=== PATIENT | male | born 1960 | race Caucasian/White ===

== ENCOUNTER 2017-07-30 15:37 | Inpatient (IN) | payer BC ==
[2017-07-30 15:37] VITALS: BMI 29.7
[2017-07-30 18:07] LABS: BASO # 0.1 K/uL (0.0-0.2); BASO % 1.2 % (0.0-2.0); EOS # 0.2 K/uL (0.0-0.7); EOS % 2.9 % (0.0-4.0); LYMPH % 24.3 % (20.0-40.0); MEAN CORPUSCULAR HEMOGLOBIN 27.8 pg (27.0-31.0); MEAN CORPUSCULAR HGB CONC 33.9 g/dL (33.0-37.0); MEAN PLATELET VOLUME 7.9 fL (7.2-11.7); MONO # 0.4 K/uL (0.0-0.8); MONO % 5.1 % (0.0-10.0); NEUT # 5.5 K/uL (1.8-7.0); NEUT % 66.5 % (50.0-75.0); NRBC % 0.1 % (0.0-2.0); RBC 5.52 Mil/uL (4.40-5.90); RED CELL DISTRIBUTION WIDTH 14.5 % (11.5-14.5); WHITE BLOOD COUNT 8.3 K/uL (4.8-10.8)
[2017-07-30 18:14] LABS: HEMOGLOBIN 15.3 g/dL (12.0-18.0); MEAN CELL VOLUME 81.9 fL (80.0-94.0)
--- NOTE | 2017-07-30 18:19 | CT ---
EXAM: CT Head Without Intravenous Contrast EXAM DATE/TIME: Exam ordered 07/30/2017 5:02 PM CLINICAL HISTORY: 56 years old, male; Signs and symptoms; Weakness, extremity; Left; Prior surgery; Surgery date: 6+ months; Surgery type: Aneursym; Additional info: Unsteady gait. Lle weakness? , H/o aneurysm surg. TECHNIQUE: Axial computed tomography images of the head/brain without intravenous contrast. All CT scans at this facility use one or more dose reduction techniques, viz.: automated exposure control; ma/kV adjustment per patient size (including targeted exams where dose is matched to indication; i.e. head); or iterative reconstruction technique. Coronal and sagittal reformatted images were created and reviewed. COMPARISON: No relevant prior studies available. FINDINGS: Brain: Encephalomalacia is noted bifrontally. Cystic encephalomalacia is noted in the left frontal lobe adjacent to the falx. There are multiple lacunar infarcts. A 4.6 mm lacunar infarct is seen in the right lentiform nucleus. A 9 mm somewhat linear area of low density is noted in the right thalamus. A 5 mm lacunar infarct is noted in the genu of the left internal capsule. A 7 mm area of low density is noted in the left lentiform nucleus suggesting lacunar infarct. A 4 mm low density focus is noted in the left thalamus. A 6 mm lacunar infarct is seen in the left sanchez radiata posteriorly. An 8 mm area of low density is noted in the right side of the leti. Inferior to this a second area of low density is noted in the leti measuring 5 mm. Low density is noted within the periventricular white matter extending into the sanchez radiata and centrum semiovale bilaterally. No hemorrhage. Ventricles: Unremarkable. No ventriculomegaly. Bones/joints: There is opacification of the left mastoid air cells. There is a fracture of the right nasal bone. There has been a right frontotemporal craniotomy. Soft tissues: Unremarkable. Vasculature: An aneurysm clip is noted at the level of right cavernous carotid. Beam hardening artifact is associated with the clip. Sinuses: Mucosal thickening is noted in left ethmoid air cells. Mastoid air cells: Unremarkable as visualized. No mastoid effusion. IMPRESSION: 1. No acute findings. Acute ischemia may not manifest on CT scan. MR with diffusion weighted imaging should be considered if there strong clinical concern for evolving infarct. 2. Bifrontal encephalomalacia with evidence of previous right frontotemporal craniotomy. 3. Multiple lacunar infarcts as described within the basal ganglia, the internal capsules and the leti. The age is uncertain. Comparison with old films would be helpful. 4. Chronic microvascular ischemic change in the deep white matter 5. Left ethmoid chronic sinusitis and left mastoiditis. The left mastoid is underpneumatized suggesting that this could be a chronic finding
[2017-07-30 18:26] LABS: PROTHROMBIN TIME 11.1 SECONDS (9.7-12.2)
[2017-07-30 18:28] LABS: ALB/GLOB RATIO 1.2 (1.0-2.1); ALBUMIN 3.8 g/dL (3.5-5.0); ALT/SGPT 31 U/L (21-72); AST/SGOT 25 U/L (17-59); BLOOD UREA NITROGEN 18 mg/dL (9-20); CALCIUM 9.2 mg/dl (8.6-10.4); GFR AFRICAN-AMERICAN > 60; GFR NON-AFRICAN AMERICAN 57; MAGNESIUM 1.3 mg/dL (1.6-2.3)
[2017-07-30 18:42] LABS: URINE BILIRUBIN NEGATIVE (NEGATIVE); URINE BLOOD SMALL (NEGATIVE); URINE CLARITY CLEAR (Clear); URINE COLOR YELLOW (YELLOW); URINE GLUCOSE (UA) 100 mg/dL (Normal); URINE HYALINE CAST 0-2 /lpf (0-2)
[2017-07-30 18:43] LABS: URINE LEUKOCYTE ESTERASE NEGATIVE Leu/uL (Negative); URINE NITRATE NEGATIVE (NEGATIVE); URINE PROTEIN > 300 mg/dL (NEGATIVE); URINE UROBILINOGEN 0.2 mg/dL (0.2-1.0)
[2017-07-30 18:49] LABS: BARBITURATES, UR NEGATIVE (NEGATIVE); BENZODIAZEPINES, UR NEGATIVE (NEGATIVE); OPIATES, UR NEGATIVE (NEGATIVE); PHENCYCLIDINE, UR NEGATIVE (NEGATIVE)
[2017-07-30] MEDS ORDERED: Magnesium Sulfate 1 gm in D5W 1 GM/100 ML BAG IVPB STA (19:01)
[2017-07-30] MEDS ORDERED: Magnesium Sulfate 1 gm in D5W 1 GM/100 ML BAG IVPB ONE (19:13)
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
--- NOTE | 2017-07-31 05:17 | HP ---
HISTORY OF PRESENT ILLNESS: This is a 56-year-old [place] male with history of multiple medical problems presented with symptoms of unsteadiness and urinary incontinence that has been intermittent during the last 10 days prior to this admission. Symptoms have been progressive and associated with also symptoms of occasional confusion. History was given by the patient's . There is no history of recent trauma. No history of seizure. The patient was evaluated in emergency room, and he had a CAT scan of the head that showed multiple lacunar infarct within the basal ganglia, the internal capsule and the leti, the age is uncertain with chronic microvascular ischemic changes in the deep white matter. The patient also has bifrontal encephalomalacia with evidence of previous right frontotemporal craniotomy. The patient had neurology consultation ordered by ER physician, and he was admitted for further management. Other review of system is negative. ALLERGIES: NO KNOWN ALLERGIES. MEDICATIONS: As per MAR. PAST MEDICAL HISTORY: Hypertension, type 2 diabetes mellitus, hypercholesterolemia. SOCIAL HISTORY: Smoker and history of heroin abuse. FAMILY HISTORY: Not contributory. PHYSICAL EXAMINATION: GENERAL: The patient is not in any cardiopulmonary distress with blood pressure 173/88, temperature 98.0, respiratory rate 18, and pulse 73. HEENT: Pupils equal and reactive to light. Normal-appearing mucosa of the conjunctivae, oropharynx and nasal membrane mucosa. NECK: Supple. No JVD. No carotid bruit. No lymph node. No thyromegaly. CHEST AND LUNGS: Bilateral symmetrical expansion. Good air exchange. No rales, no rhonchi. CARDIOVASCULAR SYSTEM: PMI not localized. S1 and S2. No additional sounds. ABDOMEN: Normoactive bowel sounds. No tenderness. No organomegaly. No masses. EXTREMITIES: No cyanosis, no clubbing, no edema. TIME CYCLE OPERATOR: Alert, awake, and oriented x2; and the patient has unsteadiness and positive Romberg sign, but there is no lateralization. ASSESSMENT: 1. Progressive intermittent unsteadiness with ataxia and tendency to fall and urinary incontinence with CAT scan finding of multiple infarctions. 2. Type 2 diabetes mellitus. 3. Hypercholesterolemia. 4. Smoker. PLAN: Neuro check every 4 hours. Neurology consult and follow recommendations. Carotid Doppler, echocardiogram. Resume patient's home medications. Accu-Cheks with insulin coverage. Fall precaution. Physical therapy. Discussed the patient's condition with his . [facility] MD [facility] # [id number]
[2017-07-31 08:21] LABS: HDL CHOLESTEROL 29 mg/dL (30-70)
[2017-07-31 08:32] LABS: LDL CHOLESTEROL 59 mg/dL (0-129)
[2017-07-31] MEDS: (Novolog) Insulin Aspart, Recombinant 100 u/ml 10 ml vial SC SCH ×4 (08:37→23:13)
--- NOTE | 2017-07-31 08:55 | RAD ---
Chest x-ray two views History: Cough. Comparison: 11/15/2014 Findings: Diffuse increased interstitial markings most prominently seen throughout the left lung with some patchy increased markings at the left lung base. Heart size within normal limits. Degenerative changes in the spine and shoulders. Impression: Diffuse increased interstitial markings most prominently seen throughout the left lung with some patchy increased markings at the left lung base.
[2017-07-31] MEDS: (Lantus) Insulin Glargine, Recombinant SC SCH (09:56)
[2017-07-31 12:26] LABS: BLOOD UREA NITROGEN 20 mg/dL (9-20); CALCIUM 9.2 mg/dl (8.6-10.4); GFR AFRICAN-AMERICAN > 60; GFR NON-AFRICAN AMERICAN 57; MAGNESIUM 1.6 mg/dL (1.6-2.3)
--- NOTE | 2017-07-31 15:45 | VASCLAB ---
PROCEDURE: HISTORY: Carotid artery stenosis COMPARISON: None available. TECHNIQUE: Grayscale and duplex Doppler evaluation of the cervical carotid and vertebral arteries were performed. The common carotid, carotid bifurcations and cervical Internal Carotid Artery (ICA) and proximal External Carotid Artery (ECA) were evaluated. The vertebral arteries were evaluated for gross patency and flow direction. Report prepared by Maykel Fleming, BS, RVT FINDINGS: RIGHT CAROTID ARTERIES: 1. Common Carotid Artery: No significant focal plaque formation of the right common carotid artery. Maximum Peak Systolic velocity: 47 cm/sec: End-diastolic velocity 6 cm/sec. 2. Carotid Bifurcation: Calcific plaque formation. Maximum Peak Systolic velocity: 56 cm/sec: End-diastolic velocity 8 cm/sec. 3. Internal Carotid Artery: Plaque description: 3.1. Proximal Segment: Peak systolic velocity 65 cm/sec: End-diastolic velocity 15 cm/sec - % stenosis 0-15% 3.2. Middle Segment: Peak systolic velocity 75 cm/sec: End-diastolic velocity 15 cm/sec - % stenosis 0-15% 3.3. Distal Segment: Peak systolic velocity 84 cm/sec: End-diastolic velocity 15 cm/sec - % stenosis 0-15% 4. External Carotid Artery: No significant focal plaque formation. Peak systolic velocity 102 cm/sec 5. ICA/CCA Ratio: 1.8 LEFT CAROTID ARTERIES: 1. Common Carotid Artery: No significant focal plaque formation of the left common carotid artery. Maximum Peak Systolic velocity: 78 cm/sec: End-diastolic velocity 7 cm/sec. 2. Carotid Bifurcation: Heterogeneous plaque formation. Maximum Peak Systolic velocity: 67 cm/sec: End-diastolic velocity 7 cm/sec. 3. Internal Carotid Artery: Minimal plaque formation of the left proximal ICA which does not result in hemodynamically significant stenosis. Plaque description: Heterogeneous 3.1. Proximal Segment: Peak systolic velocity 96 cm/sec: End-diastolic velocity 21 cm/sec - % stenosis 0-15% 3.2. Middle Segment: Peak systolic velocity 105 cm/sec: End-diastolic velocity 23 cm/sec - % stenosis 0-15% 3.3. Distal Segment: Peak systolic velocity 69 cm/sec: End-diastolic velocity 15 cm/sec - % stenosis 0-15% 4. External Carotid Artery: No significant focal plaque formation. Peak systolic velocity 180 cm/sec 5. ICA/CCA Ratio: 1.4 VERTEBRAL ARTERIES: 1. Right Vertebral Artery: The right vertebral artery flow direction is antegrade. 2. Left Vertebral Artery: The left vertebral artery flow direction is antegrade. OTHER FINDINGS: 1. Right Brachial Blood pressure: 182 mmHg. 2. Left Brachial Blood pressure: 190 mmHg. IMPRESSION: RIGHT: Duplex scan does not suggest hemodynamically significant stenosis of the right extracranial carotid arteries. LEFT: Duplex scan does not suggest hemodynamically significant stenosis of the left extracranial carotid arteries.
[2017-07-31 16:13] VITALS: RESP 20
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
--- NOTE | 2017-07-31 18:32 | CARD ---
APPROVED REPORT EXAM: Two-dimensional and M-mode echocardiogram with Doppler and color Doppler. Other Information Quality : GoodRhythm : INDICATION COPD RISK FACTORS Hypertension Diabetes M-Mode DIMENSIONS RVDd0.97 (2.1-3.2cm)Left Atrium (MM)4.10 (2.5-4.0cm) IVSd1.25 (0.7-1.1cm)Aortic Root3.51 (2.2-3.7cm) LVDd4.58 (4.0-5.6cm)Aortic Cusp Exc.1.76 (1.5-2.0cm) PWd1.08 (0.7-1.1cm)FS (%) 39 % LVDs2.78 (2.0-3.8cm)LVEF (%)70 (>50%) Mitral Valve MV E Ubnaakwy84.1cm/sMV A Vhkbsrgi24.6cm/sE/A ratio0.7 TDI E/Lateral E'0.0E/Medial E'0.0 Tricuspid Valve TR Peak [id number]/sTR Peak Gr.[id number] LEFT VENTRICLE The left ventricle is normal size. There is borderline to mild concentric left ventricular hypertrophy. Left ventricle systolic function is normal. The Ejection Fraction is 60-65%. There is normal LV segmental wall motion. Transmitral Doppler flow pattern is Grade I-abnormal relaxation pattern. There is no ventricular septal defect visualized. RIGHT VENTRICLE The right ventricle is normal size. The right ventricular systolic function is normal. ATRIA The left atrium is mildly dilated. The right atrium size is normal. AORTIC VALVE The aortic valve is mildly sclerotic. The aortic valve is tri-cuspid. No aortic regurgitation is present. There is no aortic valvular stenosis. MITRAL VALVE There is no evidence of mitral valve prolapse. There is no mitral valve regurgitation noted. TRICUSPID VALVE The tricuspid valve is normal in structure. There is trace tricuspid regurgitation. There is no pulmonary hypertension. PULMONIC VALVE The pulmonic valve is not well visualized. There is no pulmonic valvular regurgitation. GREAT VESSELS The aortic root is normal in size. The ascending aorta is normal in size. The IVC is normal in size and collapses >50% with inspiration. PERICARDIAL EFFUSION There is no pericardial effusion. <Conclusion> There is borderline to mild concentric left ventricular hypertrophy. Left ventricle systolic function is normal. The Ejection Fraction is 60-65%. Transmitral Doppler flow pattern is Grade I-abnormal relaxation pattern.
[2017-07-31] MEDS: Sodium Chloride 0.9% 1,000 ML IV SCH (18:43)
--- NOTE | 2017-07-31 19:19 | CARD ---
APPROVED REPORT EKG Measurement Heart [id number] <Conclusion> Normal sinus rhythm Nonspecific ST and T wave abnormality Prolonged QT Abnormal ECG
--- NOTE | 2017-08-01 02:54 | PN ---
DATE: 07/31/2017 SUBJECTIVE: He is not in any cardiopulmonary distress. The patient continued to be ataxic and having dysfunctional gait. OBJECTIVE: VITAL SIGNS: Blood pressure is 150/85, temperature 98.4, respiratory rate 20, and pulse 80. HEENT: Pupils are equal and reactive to light. Normal appearing mucosa of the conjunctivae, oropharynx and nasal membrane mucosa. NECK: Supple. No JVD. No carotid bruit. No lymph node. No thyromegaly. CHEST AND LUNGS: Bilateral symmetrical expansion. Good air exchange. No rales. No rhonchi. CARDIOVASCULAR SYSTEM: PMI not localized. S1, S2. No additional sounds. ABDOMEN: Normoactive bowel sounds. No tenderness. No organomegaly. No masses. EXTREMITIES: No cyanosis, no clubbing, no edema. CUSTOMER SOLUTIONS SPECIALIST: Alert, awake, oriented x2, and the patient has dysfunctional unsteady gait with ataxia, as well as intermittent periods of confusion and urinary incontinence. ASSESSMENT: 1. Vascular dementia, mixed, status post multiple infarctions. 2. Status post several aneurysmal clipping. PLAN: The patient is scheduled for CT angiogram as per Neurology. Discussed the patient's condition with his as well as the patient at the bedside. We will start also IV fluid normal saline at 80 mL per hour. Keysha Hagen MD
[2017-08-01] MEDS: Sodium Chloride 0.9% 1,000 ML IV SCH (08:30)
[2017-08-01] MEDS: (Novolog) Insulin Aspart, Recombinant 100 u/ml 10 ml vial SC SCH ×4 (09:40→22:18)
[2017-08-01] MEDS: (Lantus) Insulin Glargine, Recombinant SC SCH (09:40)
[2017-08-01] MEDS ORDERED: Iodixanol 320 MG/ML 100 ML BOTTLE IV ONE (12:50)
--- NOTE | 2017-08-01 14:04 | CT ---
PROCEDURE: CT Angiography of the neck with contrast HISTORY: History of aneurysms COMPARISON: Comparison made with prior CT scan brain dated 07/30/2017. TECHNIQUE: Contiguous helical/transaxial images of the neck were obtained from the level of the skull-base to the superior mediastinum in the arteriographic phase of enhancement. Coronal and sagittal reformats or also generated. IV contrast dose: 100 cc Visipaque 320 contrast material Radiation Dose - DLP: 554.70 mGy-cm This CT exam was performed using one or more of the following dose reduction techniques: Automated exposure control, adjustment of the mA and/or kV according to patient size, and/or use of iterative reconstruction technique. . FINDINGS: Minor calcified atherosclerotic plaque seen along the transverse portion of the aortic arch. The right brachiocephalic and left common carotid artery arise from a common trunk associated with minimal calcified plaque. The common carotid arteries are widely patent. Some minor calcified plaque seen along right and left carotid bifurcations without occlusion or significant stenosis. Distal internal carotid arteries including the petrous, cavernous and supraclinoid segments are also patent. . There is a tiny calcified plaque seen along petrous segment right internal carotid artery Re- demonstrated is a right pterional craniotomy defect. Aneurysm clips are again seen in the region of the origin of the right posterior communicating artery and another in the expected location of the at anterior communicating artery. Streak and beam hardening artifact arising from the metal aneurysm clips obscure immediate surrounding anatomic detail. The possibility of residual and a recurrent aneurysm at either location cannot cerebral angiogram should be considered. The remaining vasculature appears unremarkable without additional large aneurysm nor vascular malformations. If there is any concern for residual and a recurrent aneurysm or residual aneurysm neck, or additional small aneurysms, consider formal four-vessel cerebral angiogram. Extensive bilateral frontal lobe encephalomalacia changes left greater than right less well seen on this exam as compared to prior CT scan. Incidental note made of the medial position of the right true vocal cord; rule out right-sided vocal cord paresis or paralysis. Mild wall thickening of the proximal esophagus nonspecific. Clinical correlation recommended to determine whether additional studies should be performed to exclude intrinsic/invasive wall lesion the mid IMPRESSION: Re- demonstrated is a right pterional craniotomy defect. Aneurysm clips are again seen in the region of the origin of the right posterior communicating artery and another in the expected location of the at anterior communicating artery. Streak and beam hardening artifact arising from the metal aneurysm clips obscure immediate surrounding anatomic detail. The possibility of residual and a recurrent aneurysm at either location cannot cerebral angiogram should be considered. The remaining vasculature appears unremarkable without additional large aneurysm nor vascular malformations. If there is any concern for residual and a recurrent aneurysm or residual aneurysm neck, or additional small aneurysms, consider formal four-vessel cerebral angiogram. If there is any concern for residual and a recurrent aneurysm or residual aneurysm neck, consider formal four-vessel cerebral angiogram. Minor partially calcified atherosclerotic plaque seen along carotid bifurcations with no evidence of occlusion or significant stenosis. Incidental note made of the medial position of the right true vocal cord; rule out right-sided vocal cord paresis or paralysis. Mild wall thickening of the proximal esophagus nonspecific. Clinical correlation recommended to determine whether additional studies should be performed to exclude intrinsic/invasive wall lesion
--- NOTE | 2017-08-01 14:43 | PN ---
DATE: SUBJECTIVE: The patient is awake and he is not being engaged in the conversation and very poor eye contact. OBJECTIVE: VITAL SIGNS: Blood pressure 175/80, temperature 97.9, respiratory rate 20 and pulse 74. HEENT: Pupils equal, reactive to light. Normal-appearing mucosa of the conjunctivae, oropharynx and nasal membrane mucosa. NECK: Supple. No JVD. No carotid bruit. No lymph node. No thyromegaly. CHEST AND LUNGS: Bilateral symmetrical expansion. Good air exchange. No rales, no rhonchi. CARDIOVASCULAR SYSTEM: PMI not localized. S1, S2. No additional sounds. ABDOMEN: Normoactive bowel sounds. No tenderness. No organomegaly. No masses. EXTREMITIES: No cyanosis, no clubbing, no edema. HEALTHCARE MANAGEMENT CONSULTANT: Alert, awake, oriented x2 and the patient has unsteadiness with positive Romberg sign and ataxic gait. ASSESSMENT: 1. Multiple lacunar infarction with ataxic gait and unsteadiness and intermittent periods of confusion as well as urinary incontinence. 2. Vascular dementia. 3. Vitamin D deficiency. 4. Uncontrolled type 2 diabetes mellitus. PLAN: We will supplement vitamin D, add Norvasc 2.5 mg twice a day and also add glimepiride 2 mg with breakfast and dinner and vitamin D 5000 units daily. We will review the report of the CT angiogram with Neurology and follow the recommendations. Keysha Hagen MD
[2017-08-01] MEDS ORDERED: Ergocalciferol 50,000 Intl Units Cap PO SCH (16:15)
[2017-08-01] MEDS: Sodium Chloride 0.45% 1,000 ML IV SCH (18:01)
[2017-08-02] MEDS: (Novolog) Insulin Aspart, Recombinant 100 u/ml 10 ml vial SC SCH ×4 (07:17→22:08)
[2017-08-02] MEDS: (Lantus) Insulin Glargine, Recombinant SC SCH (09:28)
[2017-08-02] MEDS: Sodium Chloride 0.45% 1,000 ML IV SCH (12:38)
--- NOTE | 2017-08-02 13:14 | CP.PCM.PN ---
Subjective - Date & Time of Evaluation Date of Evaluation: 08/02/17 Time of Evaluation: 13:09 - Subjective Subjective: Mr. Dawson was seen and examined at the bedside. He is alert, oriented. He has left facial droop and generalized weakness with 4/5 strength throughout. Reflexes are normal. Sensation is intact but slightly diminished on the left as compared with the right. He is able to follow commands. CTA of the head and neck showed no new aneuryms. There was no untoward events overnight. Objective - Vital Signs/Intake and Output Vital Signs (last 24 hours): Temp Pulse Resp BP Pulse Ox 97.9 F 72 20 162/81 H 96 08/02/17 08:32 08/02/17 08:32 08/02/17 08:32 08/02/17 08:32 08/02/17 08:32 - Medications Medications: Current Medications Amlodipine Besylate (Norvasc) 5 mg PO Q12 [facility] Last Admin: 08/02/17 09:28 Dose: 5 mg Aspirin (Ecotrin) 81 mg PO DAILY [facility] Last Admin: 08/02/17 09:28 Dose: 81 mg Bisoprolol Fumarate (Zebeta) 5 mg PO DAILY [facility] Last Admin: 08/02/17 09:27 Dose: 5 mg Ergocalciferol (Drisdol 50,000 Intl Units Cap) 1 cap PO Q7D [facility] Last Admin: 08/01/17 18:09 Dose: 1 cap Escitalopram Oxalate (Lexapro) 10 mg PO DAILY [facility] Last Admin: 08/02/17 09:28 Dose: 10 mg Glipizide (Glucotrol) 5 mg PO ACBD [facility] Last Admin: 08/02/17 09:28 Dose: 5 mg Sodium Chloride (Sodium Chloride 0.45%) 1,000 mls @ 50 mls/hr IV .Q20H [facility] Last Admin: 08/02/17 12:38 Dose: 50 mls/hr Insulin Aspart (Novolog) 0 unit SC ACHS [facility] PRN Reason: Protocol Last Admin: 08/02/17 12:37 Dose: 6 unit Insulin Glargine (Lantus) 10 unit SC DAILY [facility] Last Admin: 08/02/17 09:28 Dose: Not Given Losartan Potassium (Cozaar) 50 mg PO DAILY [facility] Last Admin: 08/02/17 09:28 Dose: 50 mg Metformin HCl (Glucophage) 1,000 mg PO BID [facility] Last Admin: 08/02/17 09:18 Dose: Not Given Rosuvastatin Calcium (Crestor) 20 mg PO [facility] Last Admin: 08/01/17 22:14 Dose: 20 mg - Labs Labs: 07/30/17 18:03 07/31/17 08:05 PT 11.1 SECONDS (9.7-12.2) 07/30/17 18:03 INR 1.0 07/30/17 18:03 APTT 31 SECONDS (21-34) 07/30/17 18:03 - Constitutional Appears: No Acute Distress - Head Exam Head Exam: NORMAL INSPECTION - Neurological Exam Neurological Exam: Alert, Awake Neuro motor strength exam: Left Upper Extremity: 4, Right Upper Extremity: 4, Left Lower Extremity: 4, Right Lower Extremity: 4 Additional comments: CN II-XII Intact, Oriented x3, Reflexes Normal, Abnormal Gait, Left facial droop. Wide based gait, generalized weakness with 4/5 strength throughout. Reflexes are normal. Sensation is intact but slightly diminished on the left as compared with the right. Assessment and Plan (1) Unsteady gait Assessment & Plan: Case discussed with Dr. Mike, continue all current medical, physical, and occupational therapies. Recommend plavix 75 mg PO daily. Status: Acute
[2017-08-03 08:17] VITALS: BP 148/82; TEMP 98.1; O2SAT 97
[2017-08-03] MEDS: (Novolog) Insulin Aspart, Recombinant 100 u/ml 10 ml vial SC SCH ×2 (08:24→12:24)
--- NOTE | 2017-08-03 08:26 | CP.PCM.PN ---
Subjective - Date & Time of Evaluation Date of Evaluation: 08/03/17 Time of Evaluation: 08:23 - Subjective Subjective: Mr. Dawson was seen and examined at the bedside. He is alert, oriented and able to follow commands. He is sitting at the bedside chair with steady posture. He and spouse claims that the strength of his lower extremities is getting better. Demonstrate to patient some exercise to do while sitting in the chair., verbalizes understanding.There was no untoward events overnight. Objective - Vital Signs/Intake and Output Vital Signs (last 24 hours): Temp Pulse Resp BP Pulse Ox 98.1 F 75 20 148/82 97 08/03/17 07:10 08/03/17 07:10 08/03/17 07:10 08/03/17 07:10 08/03/17 07:10 - Medications Medications: Current Medications Amlodipine Besylate (Norvasc) 5 mg PO Q12 [facility] Last Admin: 08/02/17 21:43 Dose: 5 mg Aspirin (Ecotrin) 81 mg PO DAILY [facility] Last Admin: 08/02/17 09:28 Dose: 81 mg Bisoprolol Fumarate (Zebeta) 5 mg PO DAILY [facility] Last Admin: 08/02/17 09:27 Dose: 5 mg Clopidogrel Bisulfate (Plavix) 75 mg PO DAILY [facility] Last Admin: 08/02/17 13:29 Dose: 75 mg Ergocalciferol (Drisdol 50,000 Intl Units Cap) 1 cap PO Q7D [facility] Last Admin: 08/01/17 18:09 Dose: 1 cap Escitalopram Oxalate (Lexapro) 10 mg PO DAILY [facility] Last Admin: 08/02/17 09:28 Dose: 10 mg Glipizide (Glucotrol) 5 mg PO ACBD [facility] Last Admin: 08/02/17 18:05 Dose: 5 mg Sodium Chloride (Sodium Chloride 0.45%) 1,000 mls @ 50 mls/hr IV .Q20H [facility] Last Admin: 08/02/17 12:38 Dose: 50 mls/hr Insulin Aspart (Novolog) 0 unit SC ACHS [facility] PRN Reason: Protocol Last Admin: 08/02/17 22:08 Dose: Not Given Insulin Glargine (Lantus) 10 unit SC DAILY [facility] Last Admin: 08/02/17 09:28 Dose: Not Given Losartan Potassium (Cozaar) 50 mg PO DAILY [facility] Last Admin: 08/02/17 09:28 Dose: 50 mg Metformin HCl (Glucophage) 1,000 mg PO BID [facility] Last Admin: 08/02/17 09:18 Dose: Not Given Rosuvastatin Calcium (Crestor) 20 mg PO HS [facility] Last Admin: 08/02/17 21:43 Dose: 20 mg - Labs Labs: 07/30/17 18:03 07/31/17 08:05 PT 11.1 SECONDS (9.7-12.2) 07/30/17 18:03 INR 1.0 07/30/17 18:03 APTT 31 SECONDS (21-34) 07/30/17 18:03 - Constitutional Appears: No Acute Distress - Head Exam Head Exam: NORMAL INSPECTION - Neurological Exam Neurological Exam: Alert, Awake Neuro motor strength exam: Left Upper Extremity: 4, Right Upper Extremity: 4, Left Lower Extremity: 4, Right Lower Extremity: 4 Additional comments: Neurological unchanged from previous examination. Assessment and Plan (1) Unsteady gait Assessment & Plan: Case discussed with Dr. Menon, continue all current medical, physical, and occupational therapies. There is no new recommendations from neurology. Status: Acute
[2017-08-03] MEDS: (Lantus) Insulin Glargine, Recombinant SC SCH (10:04)
--- NOTE | 2017-08-03 14:29 | CP.PCM.PN ---
Subjective - Date & Time of Evaluation Date of Evaluation: 08/03/17 Time of Evaluation: 14:28 - Subjective Subjective: PT SEEN AND CLEARED BY NEURO TODAY. ACCEPTED AT [facility]. PER MARIANA BAXTER TO D/C TODAY TO ACUTE REHAB. SOC WORKER AND CM AWARE, WILL ARRANGE TRANSPORTATION FOR THIS AFTERNOON. NO FURTHER ORDERS. Objective - Vital Signs/Intake and Output Vital Signs (last 24 hours): Temp Pulse Resp BP Pulse Ox 98.1 F 75 20 148/82 97 08/03/17 07:10 08/03/17 07:10 08/03/17 07:10 08/03/17 07:10 08/03/17 07:10 - Medications Medications: Current Medications Amlodipine Besylate (Norvasc) 5 mg PO Q12 [facility] Last Admin: 08/03/17 10:04 Dose: 5 mg Aspirin (Ecotrin) 81 mg PO DAILY [facility] Last Admin: 08/03/17 10:05 Dose: 81 mg Bisoprolol Fumarate (Zebeta) 5 mg PO DAILY [facility] Last Admin: 08/03/17 10:05 Dose: 5 mg Clopidogrel Bisulfate (Plavix) 75 mg PO DAILY [facility] Last Admin: 08/03/17 10:04 Dose: 75 mg Ergocalciferol (Drisdol 50,000 Intl Units Cap) 1 cap PO Q7D [facility] Last Admin: 08/01/17 18:09 Dose: 1 cap Escitalopram Oxalate (Lexapro) 10 mg PO DAILY [facility] Last Admin: 08/03/17 10:05 Dose: 10 mg Glipizide (Glucotrol) 5 mg PO ACBD [facility] Last Admin: 08/03/17 08:24 Dose: 5 mg Sodium Chloride (Sodium Chloride 0.45%) 1,000 mls @ 50 mls/hr IV .Q20H [facility] Last Admin: 08/02/17 12:38 Dose: 50 mls/hr Insulin Aspart (Novolog) 0 unit SC [facility] PRN Reason: Protocol Last Admin: 08/03/17 12:24 Dose: 4 unit Insulin Glargine (Lantus) 10 unit SC DAILY [facility] Last Admin: 08/03/17 10:04 Dose: 10 units Losartan Potassium (Cozaar) 50 mg PO DAILY [facility] Last Admin: 08/03/17 10:04 Dose: 50 mg Metformin HCl (Glucophage) 1,000 mg PO BID [facility] Last Admin: 08/02/17 09:18 Dose: Not Given Rosuvastatin Calcium (Crestor) 20 mg PO [facility] Last Admin: 08/02/17 21:43 Dose: 20 mg - Labs Labs: 07/30/17 18:03 07/31/17 08:05 PT 11.1 SECONDS (9.7-12.2) 07/30/17 18:03 INR 1.0 07/30/17 18:03 APTT 31 SECONDS (21-34) 07/30/17 18:03
[2017-08-03 16:22] VITALS: PULSE 67
--- NOTE | 2017-08-04 08:37 | DS ---
REASON FOR ADMISSION: This is a 56-year-old [place] male with history of multiple medical problems, who was admitted for ataxic gaits as well as tendency to frequent falls. COURSE OF HOSPITALIZATION: The patient was admitted to telemetry floor and he had a Neurology consult done by Dr. Mike. The patient had a CAT scan that showed multiple old lacunar infarctions. The patient had CT angiogram that re-demonstrated right craniotomy. Aneurysm clips are seen in the region of the origin of the right posterior communicating artery and another in the expected location of the anterior communicating artery. Streak and beam hardening artifact arising from the metal aneurysm clips obscure immediate surrounding anatomical details. The remaining vasculature appears unremarkable without additional large aneurysm. No vascular malformation. If there is any concern for residual and recurrent aneurysm or residual aneurysm neck or additional small aneurysm, four-vessel angiogram could be done. There is also minor partially calcified atherosclerotic plaque seen along the carotid bifurcation with no evidence of occlusion or significant stenosis. The patient was continued on both aspirin and Plavix and statin. The patient was cleared by Neurology for transfer to acute rehabilitation. FINAL DIAGNOSES: Multiple lacunar infarctions, hypertension, type 2 diabetes mellitus, and vascular dementia. Keysha Hagen MD
== END 2017-08-03 16:28 | DRG 884 ==
LOC: C.ER 15:37 → C.9E 20:26 → C.6T 21:05
PROVIDERS: ADMIT Internal Medicine; ATTEND Internal Medicine
DX: F01.50 Vascular dementia, unspecified severity, without behavioral disturbance, psychotic disturbance, mood disturbance, and anxiety (principal); G93.89 Other specified disorders of brain; E11.65 Type 2 diabetes mellitus with hyperglycemia; E78.5 Hyperlipidemia, unspecified; F17.200 Nicotine dependence, unspecified, uncomplicated; G47.30 Sleep apnea, unspecified; F32.9 Major depressive disorder, single episode, unspecified; I10 Essential (primary) hypertension; E55.9 Vitamin D deficiency, unspecified; I65.29 Occlusion and stenosis of unspecified carotid artery; J43.9 Emphysema, unspecified; R29.6 Repeated falls; R29.810 Facial weakness; R32 Unspecified urinary incontinence

== ENCOUNTER 2018-02-23 16:32 | Observation (INO) | payer BC ==
[2018-02-23 16:32] VITALS: BMI 25.0
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
[2018-02-23 17:31] LABS: BASO % 0.3 % (0.0-2.0); EOS # 0.1 K/uL (0.0-0.7); EOS % 1.1 % (0.0-4.0); HEMOGLOBIN 14.2 g/dL (12.0-18.0); LYMPH # 1.5 K/uL (1.0-4.3); MEAN CELL VOLUME 80.3 fL (80.0-94.0); MEAN CORPUSCULAR HEMOGLOBIN 27.2 pg (27.0-31.0); MEAN CORPUSCULAR HGB CONC 33.8 g/dL (33.0-37.0); MEAN PLATELET VOLUME 7.9 fL (7.2-11.7); MONO # 0.5 K/uL (0.0-0.8); NEUT # 6.6 K/uL (1.8-7.0); NEUT % 75.6 % (50.0-75.0); NRBC % 0.1 % (0.0-2.0); RBC 5.25 Mil/uL (4.40-5.90); RED CELL DISTRIBUTION WIDTH 13.6 % (11.5-14.5); WHITE BLOOD COUNT 8.7 K/uL (4.8-10.8)
[2018-02-23 17:40] LABS: INR 1.1; PROTHROMBIN TIME 11.6 SECONDS (9.7-12.2)
--- NOTE | 2018-02-23 17:46 | CT ---
Date of service: 02/23/2018 PROCEDURE: CT HEAD WITHOUT CONTRAST. HISTORY: right side weakness COMPARISON: CT head dated 09/09/2017. TECHNIQUE: Axial computed tomography images were obtained through the head/brain without intravenous contrast. Radiation dose: Total exam DLP = 985.7 mGy-cm. This CT exam was performed using one or more of the following dose reduction techniques: Automated exposure control, adjustment of the mA and/or kV according to patient size, and/or use of iterative reconstruction technique. FINDINGS: HEMORRHAGE: No intracranial hemorrhage. BRAIN: No mass effect or edema. Bifrontal encephalomalacia. Bilateral basal ganglia, bilaterally colonic and pontine lacunar infarctions redemonstrated. Chronic microvascular ischemic changes. VENTRICLES: Unremarkable. No hydrocephalus. CALVARIUM: Right pterional craniotomy. PARANASAL SINUSES: Unremarkable as visualized. No significant inflammatory changes. MASTOID AIR CELLS: Unremarkable as visualized. No inflammatory changes. OTHER FINDINGS: Aneurysm clips in the region of the right anterior and posterior communicating arteries. IMPRESSION: No acute intracranial pathology. Stable findings as above.
--- NOTE | 2018-02-23 18:04 | RAD ---
Date of service: 02/23/2018 PROCEDURE: CHEST RADIOGRAPH, 1 VIEW HISTORY: SOB COMPARISON: Chest radiographs dated 07/30/2017. FINDINGS: LUNGS: Left basilar platelike atelectasis/scarring. No focal consolidation. PLEURA: No pneumothorax or pleural fluid seen. CARDIOVASCULAR: Normal. OSSEOUS STRUCTURES: Degenerative changes. VISUALIZED UPPER ABDOMEN: Normal. OTHER FINDINGS: None. IMPRESSION: No active disease.
[2018-02-23 18:07] LABS: ALB/GLOB RATIO 1.1 (1.0-2.1); ALBUMIN 3.4 g/dL (3.5-5.0); CALCIUM 9.4 mg/dl (8.6-10.4)
[2018-02-23 18:19] LABS: TROPONIN I 0.029 ng/mL (0.00-0.120)
[2018-02-23] MEDS: Sodium Chloride 0.45% 1,000 ML IV SCH (21:00)
[2018-02-23] MEDS ORDERED: Insulin Detemir 100 units/ml Vial (Levemir) SC SCH (22:00)
[2018-02-23] MEDS ORDERED: (Lantus) Insulin Glargine, Recombinant SC SCH (22:00)
[2018-02-23] MEDS: (Novolog) Insulin Aspart, Recombinant 100 u/ml 10 ml vial SC SCH (22:40)
[2018-02-23] MEDS: (Lantus) Insulin Glargine, Recombinant SC SCH (22:41)
[2018-02-23 23:50] VITALS: RESP 20
[2018-02-24] MEDS ORDERED: Fluticasone-Salmeterol 250-50mcg Diskus INH SCH (08:00)
[2018-02-24] MEDS ORDERED: Tiotropium 18 mcg Cap For Inhalation INH SCH (08:00)
[2018-02-24] MEDS: (Novolog) Insulin Aspart, Recombinant 100 u/ml 10 ml vial SC SCH ×2 (08:38→12:28)
[2018-02-24] MEDS: (Lantus) Insulin Glargine, Recombinant SC SCH (08:39)
[2018-02-24] MEDS ORDERED: Pneumococcal 23-Valent Vaccine IM ONE (10:00)
[2018-02-24] MEDS: Sodium Chloride 0.45% 1,000 ML IV SCH (14:21)
[2018-02-24 14:49] LABS: URINE BACTERIA RARE (<OCC); URINE BILIRUBIN NEGATIVE (NEGATIVE); URINE BLOOD NEGATIVE (NEGATIVE); URINE CLARITY Clear (Clear); URINE COLOR Straw (YELLOW); URINE GLUCOSE (UA) 3+ mg/dL (Normal); URINE LEUKOCYTE ESTERASE NEG Leu/uL (Negative); URINE PROTEIN 3+ mg/dL (NEGATIVE); URINE UROBILINOGEN NORMAL mg/dL (0.2-1.0)
--- NOTE | 2018-02-24 15:57 | CP.PCM.CON ---
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 Per , patient has been depressed since returning from [place] last week and has had poor appetite with resulting weakness. This weakness and lethargy began 3 days ago. He did not have any new focal deficits. stated this happened in the past and [place] [facility] [place] bag of IV fluids to which he responded well. Otherwise patient is at his baseline. 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 per day (pt unable to verify address of his methadone clinic) Review of Systems - Constitutional Constitutional: absent: Chills, Fever - EENT Eyes: absent: Blurred Vision - Cardiovascular Cardiovascular: absent: Chest Pain - Respiratory Respiratory: absent: Dyspnea - Genitourinary Genitourinary: absent: Dysuria - Integumentary Integumentary: absent: Bleeding Lesions - Psychiatric Psychiatric: [place] Past Patient History - Infectious Disease Hx of Infectious Diseases: None - Tetanus Immunizations Tetanus Immunization: Unknown - Past Medical History & Family History Past Medical History?: Yes - Past Social History Smoking Status: Former Smoker - CARDIAC Hx Hypercholesterolemia: Yes Hx Hypertension: Yes - PULMONARY Hx Bronchitis: Yes Hx Chronic Obstructive Pulmonary Disease (COPD): Yes Hx Emphysema: Yes Hx Sleep Apnea: Yes - NEUROLOGICAL HX Cerebrovascular Accident: Yes Hx Seizures: No (no seizure accdg to ) Hx Transient Ischemic Attacks (TIA): No - HEENT Hx HEENT Problems: No - RENAL Hx Chronic Kidney Disease: No - ENDOCRINE/METABOLIC Hx Endocrine Disorders: No - HEMATOLOGICAL/ONCOLOGICAL Hx Blood Disorders: No - INTEGUMENTARY Hx Dermatological Problems: No - MUSCULOSKELETAL/RHEUMATOLOGICAL Hx Falls: No - GASTROINTESTINAL Hx Gastrointestinal Disorders: No - GENITOURINARY/GYNECOLOGICAL Hx Genitourinary Disorders: No Hx Incontinence: Yes - PSYCHIATRIC Hx Substance Use: No - SURGICAL HISTORY Hx Surgeries: Yes Other/Comment: Brain Aneurysm w/ Clipping. - ANESTHESIA Hx Anesthesia: Yes Hx Anesthesia Reactions: No Hx Malignant Hyperthermia: No Meds Allergies/Adverse Reactions: Allergies Allergy/AdvReac Type Severity Reaction Status Date / Time Penicillins Allergy ITCHING Verified 02/23/18 23:48 - Medications Medications: Current Medications Amlodipine Besylate (Norvasc) 2.5 mg PO HS [facility] Aspirin (Ecotrin) 81 mg PO Q48H [facility] Last Admin: 02/23/18 22:45 Dose: 81 mg Bisoprolol Fumarate (Zebeta) 5 mg PO [facility] Last Admin: 02/23/18 22:46 Dose: 5 mg Clopidogrel Bisulfate (Plavix) 75 mg PO DAILY [facility] Last Admin: 02/24/18 11:10 Dose: 75 mg Donepezil HCl (Aricept) 5 mg PO HS [facility] Last Admin: 02/23/18 22:45 Dose: 5 mg Escitalopram Oxalate (Lexapro) 5 mg PO HS [facility] Last Admin: 02/23/18 22:45 Dose: 5 mg Heparin Sodium (Porcine) (Heparin) 5,000 units SC Q12 [facility] Last Admin: 02/24/18 11:11 Dose: 5,000 units Sodium Chloride (Sodium Chloride 0.45%) 1,000 mls @ 50 mls/hr IV .Q20H [facility] Last Admin: 02/24/18 14:21 Dose: 50 mls/hr Insulin Aspart (Novolog) 0 unit SC [facility] PRN Reason: Protocol Last Admin: 02/24/18 12:28 Dose: 8 units Insulin Glargine (Lantus) 15 unit SC [facility] Last Admin: 02/24/18 08:39 Dose: 15 units Losartan Potassium (Cozaar) 50 mg PO DAILY [facility] Last Admin: 02/24/18 11:10 Dose: 50 mg Memantine (Namenda) 5 mg PO [facility] Last Admin: 02/23/18 22:44 Dose: 5 mg Rosuvastatin Calcium (Crestor) 20 mg PO [facility] Last Admin: 02/23/18 22:45 Dose: 20 mg Fluticasone/Salmeterol (Advair Diskus 250/50) 1 puff INH RQ12 [facility] Last Admin: 02/24/18 07:50 Dose: Not Given Tamsulosin HCl (Flomax) 0.4 mg PO [facility] Last Admin: 02/23/18 22:46 Dose: 0.4 mg Tiotropium [place] (Spiriva Inhalation Handihaler Device) 1 inhaler INH RQD [facility] Tiotropium [place] (Spiriva) 18 mcg INH RQ24 [facility] Last Admin: 02/24/18 07:50 Dose: Not Given Physical Exam - Constitutional Appears: No Acute Distress - Head Exam Head Exam: ATRAUMATIC, NORMAL INSPECTION - Eye Exam Eye Exam: EOMI, PERRL, Scleral icterus - ENT Exam ENT Exam: Mucous Membranes Moist - Neck Exam Neck exam: Positive for: Normal Inspection - Respiratory Exam Respiratory Exam: Clear to Auscultation Bilateral, NORMAL BREATHING PATTERN. absent: Rales, Rhonchi, Wheezes - Cardiovascular Exam Cardiovascular Exam: REGULAR RHYTHM, +S1, +S2. absent: Bradycardia, Tachycardia , Systolic Murmur - GI/Abdominal Exam GI & Abdominal Exam: Normal Bowel Sounds, Soft. absent: Distended, Firm, Guarding - Extremities Exam Extremities exam: Positive for: normal capillary refill, normal inspection. Negative for: calf tenderness - Neurological Exam Neurological exam: Alert, Oriented x3 - Skin Skin Exam: Dry, Intact, Warm Results - Vital Signs Recent Vital Signs: Last Vital Signs Temp 97.5 F L 02/24/18 09:57 Pulse 65 02/24/18 09:57 Resp 20 02/24/18 09:57 BP 162/86 H 02/24/18 09:57 Pulse Ox 98 02/24/18 09:57 - Labs Result Diagrams: 02/23/18 17:25 02/23/18 17:25 Labs: Laboratory Results - last 24 hr 02/23/18 02/23/18 02/23/18 14:42 16:55 17:25 WBC 8.7 RBC 5.25 Hgb 14.2 Hct 42.1 MCV 80.3 MCH 27.2 MCHC 33.8 RDW 13.6 Plt Count 305 MPV 7.9 Neut % (Auto) 75.6 H Lymph % (Auto) 17.0 L [place] % (Auto) 6.0 Eos % (Auto) 1.1 Baso % (Auto) 0.3 Neut # (Auto) 6.6 Lymph # (Auto) 1.5 [place] # (Auto) 0.5 Eos # (Auto) 0.1 Baso # (Auto) 0.0 PT INR APTT Sodium Potassium Chloride Carbon Dioxide Anion Gap BUN Creatinine Est GFR ( Amer) Est GFR (Non-Af Amer) POC Glucose (mg/dL) 321 H Random Glucose Calcium Magnesium Total Bilirubin AST ALT Alkaline Phosphatase Troponin I NT-Pro-B Natriuret Pep Total Protein Albumin Globulin Albumin/Globulin Ratio TSH 3rd Generation Urine Color Straw Urine Clarity Clear Urine pH 6.0 Ur Specific [place] 1.015 Urine Protein 3+ H Urine Glucose (UA) 3+ H Urine Ketones Negative Urine Blood Negative Urine Nitrate Negative Urine Bilirubin Negative Urine Urobilinogen Normal Ur Leukocyte Esterase Neg Urine WBC (Auto) 1 Urine RBC (Auto) < 1 Urine Bacteria Rare 02/23/18 02/23/18 02/23/18 17:25 17:25 21:22 WBC RBC Hgb Hct MCV MCH MCHC RDW Plt Count MPV Neut % (Auto) Lymph % (Auto) [place] % (Auto) Eos % (Auto) Baso % (Auto) Neut # (Auto) Lymph # (Auto) [place] # (Auto) Eos # (Auto) Baso # (Auto) PT 11.6 INR 1.1 APTT 31 Sodium 138 Potassium 4.4 Chloride 105 Carbon Dioxide 21 L Anion Gap 16 BUN 36 H Creatinine 2.1 H Est GFR ( Amer) 39 Est GFR (Non-Af Amer) 32 POC Glucose (mg/dL) 381 H Random Glucose 377 H Calcium 9.4 Magnesium 1.7 Total Bilirubin 0.4 AST 35 ALT 49 Alkaline Phosphatase 114 Troponin I 0.0290 NT-Pro-B Natriuret Pep 1500 H Total Protein 6.6 Albumin 3.4 L Globulin 3.1 Albumin/Globulin Ratio 1.1 TSH 3rd Generation 0.18 L Urine Color Urine Clarity Urine pH Ur Specific [place] Urine Protein Urine Glucose (UA) Urine Ketones Urine Blood Urine Nitrate Urine Bilirubin Urine Urobilinogen Ur Leukocyte Esterase Urine WBC (Auto) Urine RBC (Auto) Urine Bacteria 02/24/18 02:42 WBC RBC Hgb Hct MCV MCH MCHC RDW Plt Count MPV Neut % (Auto) Lymph % (Auto) [place] % (Auto) Eos % (Auto) Baso % (Auto) Neut # (Auto) Lymph # (Auto) [place] # (Auto) Eos # (Auto) Baso # (Auto) PT INR APTT Sodium Potassium Chloride Carbon Dioxide Anion Gap BUN Creatinine Est GFR ( Amer) Est GFR (Non-Af Amer) POC Glucose (mg/dL) 338 H Random Glucose Calcium Magnesium Total Bilirubin AST ALT Alkaline Phosphatase Troponin I NT-Pro-B Natriuret Pep Total Protein Albumin Globulin Albumin/Globulin Ratio TSH 3rd Generation Urine Color Urine Clarity Urine pH Ur Specific [place] Urine Protein Urine Glucose (UA) Urine Ketones Urine Blood Urine Nitrate Urine Bilirubin Urine Urobilinogen Ur Leukocyte Esterase Urine WBC (Auto) Urine RBC (Auto) Urine Bacteria Assessment & Plan - Assessment and Plan (Free Text) Plan: Mr Espinal is a 57 year old male with a PMHx of DM2, HTN, HLD, cerebral aneurysm s/p clipping 30 years ago, multiple lacunar infarcts w/ residual left- sided weakness, 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, who presented with generalized weakness likely due to decreased appetite: Generalized Weakness Likely secondary to poor oral intake, as per patient recently more depressed after returning from [place] and with decreased appetite No new focal deficits Head CT negative for acute changes Continue aspirin 81mg, plavix 75mg Unable to perform MRI as patient with clips that are 30 years old Need to rehydrate as likely cause of his WILLIAM Needs better glycemic control Physical therapy as patient de-conditioned - last physical therapy session was 2 months ago Please re-consult as necessary We will sign off at this time Recommend outpatient neurology follow-up Case discussed with neurologist Dr Mike <Sean Mike - Last Filed: 02/24/18 20:09> Results - Vital Signs Recent Vital Signs: Last Vital Signs Temp 98 F 02/24/18 15:59 Pulse 61 02/24/18 15:59 Resp 20 02/24/18 15:59 BP 165/80 H 02/24/18 15:59 Pulse Ox 99 02/24/18 15:59 - Labs Result Diagrams: 02/23/18 17:25 02/23/18 17:25 Labs: Laboratory Results - last 24 hr 02/23/18 02/23/18 02/24/18 14:42 21:22 02:42 POC Glucose (mg/dL) 381 H 338 H Urine Color Straw Urine Clarity Clear Urine pH 6.0 Ur Specific [place] 1.015 Urine Protein 3+ H Urine Glucose (UA) 3+ H Urine Ketones Negative Urine Blood Negative Urine Nitrate Negative Urine Bilirubin Negative Urine Urobilinogen Normal Ur Leukocyte Esterase Neg Urine WBC (Auto) 1 Urine RBC (Auto) < 1 Urine Bacteria Rare 02/24/18 16:27 POC Glucose (mg/dL) 351 H Urine Color Urine Clarity Urine pH Ur Specific [place] Urine Protein Urine Glucose (UA) Urine Ketones Urine Blood Urine Nitrate Urine Bilirubin Urine Urobilinogen Ur Leukocyte Esterase Urine WBC (Auto) Urine RBC (Auto) Urine Bacteria Attending/Attestation - Attestation I have personally seen and examined this patient.: Yes I have fully participated in the care of the patient.: Yes I have reviewed all pertinent clinical information: Yes Notes (Text): 02/24/18 15:00 On my assessment the patient likely was dehydrated and deconditioned due to recent travel and not drinking or eating along with his chronic frontal-lobe syndrome. I recommended rehydration, continue current medications and follow up as an outpatient.
[2018-02-24 16:00] VITALS: BP 165/80; PULSE 61; TEMP 98; O2SAT 99
--- NOTE | 2018-02-25 00:05 | CARD ---
APPROVED REPORT Date of service: 02/23/2018 EKG Measurement Heart [id number] VT 154P-11 [id number] <Conclusion> Normal sinus rhythm Left axis deviation ST & T wave abnormality, consider lateral ischemia Abnormal ECG
== END 2018-02-24 17:10 | disposition left against medical advice (07) ==
LOC: C.ER 16:32 → C.9E 18:43 → INTOOBSV 18:43 → C.3T 19:35
PROVIDERS: ADMIT Internal Medicine; ATTEND Internal Medicine
DX: E86.0 Dehydration (principal); I69.354 Hemiplegia and hemiparesis following cerebral infarction affecting left non-dominant side; R63.0 Anorexia; R53.1 Weakness; J43.9 Emphysema, unspecified; N28.9 Disorder of kidney and ureter, unspecified; I10 Essential (primary) hypertension; E11.65 Type 2 diabetes mellitus with hyperglycemia; G93.89 Other specified disorders of brain; E78.00 Pure hypercholesterolemia, unspecified; E78.5 Hyperlipidemia, unspecified; G47.30 Sleep apnea, unspecified; F07.0 Personality change due to known physiological condition; Z87.891 Personal history of nicotine dependence; Z79.4 Long term (current) use of insulin; Z88.0 Allergy status to penicillin
CPT/HCPCS: 70450; 71045; 80053; 81001; 82948; 83735; 83880; 84443; 84484; 85025; 85610; 85730; 87040; 87086; 93005; 97116; 97162; 97166; 97530; 99285; G0378; G8978; G8979; G8987; G8988; J1644; J7030

== ENCOUNTER 2018-06-14 15:34 | Observation (INO) | payer BC ==
[2018-06-14 15:34] VITALS: BMI 25.0
[2018-06-14] MEDS ORDERED: Sodium Chloride 0.9% 1,000 ML IV ONE (16:51)
[2018-06-14] MEDS ORDERED: Sodium Chloride 0.9% 1,000 ML ONE (17:04)
[2018-06-14 17:26] LABS: BASO # 0.2 K/uL (0.0-0.2); BASO % 1.5 % (0.0-2.0); EOS # 0.1 K/uL (0.0-0.7); EOS % 0.7 % (0.0-4.0); HEMOGLOBIN 12.4 g/dL (12.0-18.0); MEAN CELL VOLUME 82.1 fL (80.0-94.0); MEAN CORPUSCULAR HEMOGLOBIN 27.2 pg (27.0-31.0); MEAN CORPUSCULAR HGB CONC 33.1 g/dL (33.0-37.0); MEAN PLATELET VOLUME 7.8 fL (7.2-11.7); MONO # 0.7 K/uL (0.0-0.8); MONO % 6.2 % (0.0-10.0); NEUT # 8.2 K/uL (1.8-7.0); NEUT % 73.6 % (50.0-75.0); RBC 4.54 Mil/uL (4.40-5.90); RED CELL DISTRIBUTION WIDTH 14.6 % (11.5-14.5); WHITE BLOOD COUNT 11.1 K/uL (4.8-10.8)
[2018-06-14 17:46] LABS: ALBUMIN 2.9 g/dL (3.5-5.0); CALCIUM 8.1 mg/dl (8.6-10.4)
[2018-06-14 17:57] LABS: TROPONIN I 0.047 ng/mL (0.00-0.120)
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
--- NOTE | 2018-06-14 21:03 | RAD ---
Date of service: 06/14/2018 PROCEDURE: CHEST RADIOGRAPH, 1 VIEW HISTORY: r/o infiltrate COMPARISON: 02/23/2018 FINDINGS: LUNGS: Minimal stable scarring is seen in the left lower lobe. Additional minor scarring is seen in the left upper lobe. No new focal infiltrate is seen. PLEURA: No pneumothorax or pleural fluid seen. CARDIOVASCULAR: No aortic atherosclerotic calcification present. Normal. OSSEOUS STRUCTURES: Probable healed rib fractures on the left. VISUALIZED UPPER ABDOMEN: Normal. OTHER FINDINGS: None. IMPRESSION: No new focal infiltrate or CHF.
[2018-06-14 23:04] VITALS: RESP 20
[2018-06-15] MEDS: Sodium Chloride 0.9% 1,000 ML IV SCH ×2 (01:06→14:04)
[2018-06-15] MEDS: (Lantus) Insulin Glargine, Recombinant SC SCH ×2 (09:32→23:07)
[2018-06-15] MEDS: (Novolog) Insulin Aspart, Recombinant 100 u/ml 10 ml vial SC SCH ×3 (11:31→21:40)
[2018-06-15] MEDS ORDERED: Sodium Chloride 0.45% 1,000 ML IV SCH (18:00)
--- NOTE | 2018-06-15 20:01 | CARD ---
APPROVED REPORT Date of service: 06/14/2018 EKG Measurement Heart [id number] [place] 144P-53 [id number] <Conclusion> Unusual P axis, possible ectopic atrial rhythm Left axis deviation Nonspecific ST and T wave abnormality Abnormal ECG
[2018-06-15] MEDS ORDERED: (Lantus) Insulin Glargine, Recombinant SC SCH (22:00)
[2018-06-15] MEDS ORDERED: Insulin Detemir 100 units/ml Vial (Levemir) SC SCH (22:00)
[2018-06-15] MEDS: Albuterol-Ipratrop 3 mg / 0.5 (3 ml) UD INH SCH (22:18)
[2018-06-16] MEDS: Albuterol-Ipratrop 3 mg / 0.5 (3 ml) UD INH SCH ×3 (01:40→13:31)
--- NOTE | 2018-06-16 02:28 | PN ---
DATE: 06/15/2018 SUBJECTIVE: The patient is seen today, 06/15/2018. He is more awake and alert. PHYSICAL EXAMINATION: VITAL SIGNS: Blood pressure is 172/82, temperature 98.6, respiratory rate 20, and pulse 71. HEENT: Pupils equal, reactive to light. Normal-appearing mucosa of the conjunctivae, oropharynx and nasal membrane mucosa. NECK: Supple. No JVD. No carotid bruit. No lymph node. No thyromegaly. CHEST AND LUNGS: Bilateral symmetrical expansion. Good air exchange. No rales, no rhonchi. CARDIOVASCULAR SYSTEM: PMI not localized. S1, S2. No additional sounds. ABDOMEN: Normoactive bowel sounds. No tenderness. No organomegaly. No masses. EXTREMITIES: No cyanosis, no clubbing, no edema. CENTRAL NERVOUS SYSTEM: Alert, awake, oriented x2 and moves all extremities equally. LABORATORY DATA: Blood work showed BUN of 38 and creatinine 2.3. Chest x-ray, no new infiltration or CHF. ASSESSMENT: 1. Dehydration. 2. [id number] kidney disease. 3. Type 2 diabetes mellitus with hyperglycemia. 4. Viral syndrome. PLAN: Continue IV hydration and resume the patient's home medication including insulin. Keysha Hagen MD
[2018-06-16 07:39] LABS: CALCIUM 7.7 mg/dl (8.6-10.4)
[2018-06-16] MEDS: (Novolog) Insulin Aspart, Recombinant 100 u/ml 10 ml vial SC SCH ×3 (07:43→17:43)
[2018-06-16] MEDS: (Lantus) Insulin Glargine, Recombinant SC SCH (09:33)
[2018-06-16] MEDS ORDERED: Pneumococcal 23-Valent Vaccine IM ONE (10:00)
[2018-06-16] MEDS ORDERED: Sodium Chloride 0.9% 1,000 ML IV SCH (11:45)
[2018-06-16 15:55] VITALS: BP 154/69; PULSE 84; TEMP 97.3; O2SAT 96
--- NOTE | 2018-06-16 16:03 | CP.PCM.PN ---
Subjective - Date & Time of Evaluation Date of Evaluation: 06/16/18 Time of Evaluation: 16:03 - Subjective Subjective: Alert, awake, no sob or chest pains, no acute distress. Objective - Vital Signs/Intake and Output Vital Signs (last 24 hours): Temp Pulse Resp BP Pulse Ox 97.3 F L 84 20 154/69 H 96 06/16/18 15:54 06/16/18 15:54 06/16/18 15:54 06/16/18 15:54 06/16/18 15:54 - Medications Medications: Current Medications Albuterol/Ipratropium (Duoneb 3 Mg/0.5 Mg (3 Ml) Ud) 3 ml INH RQ6 [facility] Last Admin: 06/16/18 13:31 Dose: 3 ml Amlodipine Besylate (Norvasc) 5 mg PO Q12 [facility] Last Admin: 06/16/18 09:29 Dose: 5 mg Aspirin (Ecotrin) 81 mg PO HS [facility] Last Admin: 06/15/18 21:36 Dose: 81 mg Bisoprolol Fumarate (Zebeta) 5 mg PO 1600 [facility] Last Admin: 06/15/18 17:06 Dose: 5 mg Clopidogrel Bisulfate (Plavix) 75 mg PO DAILY [facility] Last Admin: 06/16/18 09:29 Dose: 75 mg Escitalopram Oxalate (Lexapro) 5 mg PO HS [facility] Last Admin: 06/15/18 21:36 Dose: 5 mg Heparin Sodium (Porcine) (Heparin) 5,000 units SC Q12 [facility] Last Admin: 06/16/18 09:29 Dose: 5,000 units Insulin Aspart (Novolog) 0 unit SC [facility]; Protocol Last Admin: 06/16/18 11:31 Dose: 6 units Insulin Glargine (Lantus) 15 unit SC Q12 [facility] Last Admin: 06/16/18 09:33 Dose: 15 units Losartan Potassium (Cozaar) 50 mg PO DAILY [facility] Last Admin: 06/16/18 09:29 Dose: 50 mg Memantine (Namenda) 5 mg PO BID [facility] Last Admin: 06/16/18 09:34 Dose: Not Given Rosuvastatin Calcium (Crestor) 20 mg PO HS [facility] Last Admin: 06/15/18 21:36 Dose: 20 mg Tamsulosin HCl (Flomax) 0.4 mg PO [facility] Last Admin: 06/15/18 21:37 Dose: 0.4 mg - Labs Labs: 06/14/18 17:21 06/16/18 07:17 Assessment and Plan - Assessment and Plan (Free Text) Assessment: 57 year old admitted with weakness, dehydration, seen and examined. Alert, awake, weakness from old CVA. No sob or wheezing today, discussed with DR Hagen, plan to discharge home with family today. Advised to follow up in the office in 1 week. Will continue with present medications.
[2018-06-16 17:09] LABS: ABG ALLEN TEST POS; ARTERIAL BLOOD GAS HCO3 22.1 mmol/L (21-28); ARTERIAL BLOOD GAS HEMOGLOBIN 10.9 g/dL (11.7-17.4); ARTERIAL BLOOD GAS O2 SAT 99.4 % (95-98); ARTERIAL BLOOD GAS PCO2 31 mm/Hg (35-45); ARTERIAL BLOOD GAS PH 7.42 (7.35-7.45); ARTERIAL BLOOD GAS PO2 81 mm/Hg (80-100); ARTERIAL BLOOD GAS TCO2 21.1 mmol/L (22-28)
--- NOTE | 2018-06-17 06:18 | DS ---
REASON FOR ADMISSION: This is a 57-year-old [place] male with history of multiple medical problems, who was admitted for dehydration and viral syndrome. COURSE OF HOSPITALIZATION: The patient was admitted to medical floor and he was started on IV fluids. The patient's fever subsided without IV antibiotics. Influenza A and B were negative. The patient responded well and his home medications were started. The patient was kept on Accu-Cheks with insulin coverage as needed. The patient's kidney function responded well and the patient also was found to have a small draining boil in the right ____ area. The patient was kept in local wound treatment as well as given Augmentin 500 mg twice a day and to follow with Surgery as an outpatient. The patient was discharged in stable condition as per his desire. FINAL DIAGNOSES: [id number]-zzslhda kidney disease, dehydration, viral syndrome, type 2 diabetes mellitus, status post cerebrovascular accident, hypertension. Keysha Hagen MD
== END 2018-06-16 18:04 | disposition home or self-care (01) ==
LOC: C.ER 15:34 → C.3T 20:34
PROVIDERS: ADMIT Internal Medicine; ATTEND Internal Medicine
DX: N17.9 Acute kidney failure, unspecified (principal); E86.0 Dehydration; B34.9 Viral infection, unspecified; I12.9 Hypertensive chronic kidney disease with stage 1 through stage 4 chronic kidney disease, or unspecified chronic kidney disease; J43.9 Emphysema, unspecified; L02.92 Furuncle, unspecified; N18.9 Chronic kidney disease, unspecified; G47.30 Sleep apnea, unspecified; Z86.73 Personal history of transient ischemic attack (TIA), and cerebral infarction without residual deficits; E78.00 Pure hypercholesterolemia, unspecified; Z87.891 Personal history of nicotine dependence; E11.22 Type 2 diabetes mellitus with diabetic chronic kidney disease; E11.65 Type 2 diabetes mellitus with hyperglycemia
CPT/HCPCS: 36415; 71045; 80048; 80053; 82803; 82948; 84484; 85025; 87040; 87804; 93005; 94640; 96374; 97116; 97162; 99285; G0378; G8978; G8979; J1644; J7030

== ENCOUNTER 2018-06-29 17:53 | Inpatient (IN) | payer BC ==
[2018-06-29 17:53] VITALS: BMI 25.0
[2018-06-29] MEDS ORDERED: Iodixanol 320 MG/ML 100 ML BOTTLE IV ONE ×2 (18:10→18:16)
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
[2018-06-29] MEDS ORDERED: Sodium Chloride 0.9% 1,000 ML IV SCH ×2 (18:15→20:00)
[2018-06-29 18:35] LABS: BASO # 0.1 K/uL (0.0-0.2); BASO % 1.1 % (0.0-2.0); EOS % 0.5 % (0.0-4.0); HEMOGLOBIN 14.3 g/dL (12.0-18.0); LYMPH # 1.9 K/uL (1.0-4.3); LYMPH % 22.2 % (20.0-40.0); MEAN CELL VOLUME 81.4 fL (80.0-94.0); MEAN CORPUSCULAR HEMOGLOBIN 27.2 pg (27.0-31.0); MEAN CORPUSCULAR HGB CONC 33.4 g/dL (33.0-37.0); MONO # 0.5 K/uL (0.0-0.8); MONO % 6.2 % (0.0-10.0); NRBC % 0.1 % (0.0-2.0); RBC 5.25 Mil/uL (4.40-5.90); RED CELL DISTRIBUTION WIDTH 15.1 % (11.5-14.5); WHITE BLOOD COUNT 8.6 K/uL (4.8-10.8)
[2018-06-29] MEDS ORDERED: Sodium Chloride 0.9% 1,000 ML IV STA (18:38)
[2018-06-29 18:44] LABS: INR 1.1; PROTHROMBIN TIME 12.3 SECONDS (9.7-12.2)
[2018-06-29 18:56] LABS: ALB/GLOB RATIO 1.2 (1.0-2.1); ALBUMIN 3.6 g/dL (3.5-5.0); CALCIUM 8.9 mg/dl (8.6-10.4)
[2018-06-29 18:59] LABS: TROPONIN I 0.107 ng/mL (0.00-0.120)
[2018-06-29] MEDS ORDERED: Divalproex 500 mg ER Tab PO STA (19:23)
[2018-06-29] MEDS ORDERED: Divalproex 500 mg DR Tab PO ONE (20:28)
[2018-06-29] MEDS ORDERED: Home Med 1 UNIT (Atorvastatin [Lipitor] 40 MG) PO SCH (22:00)
[2018-06-29] MEDS ORDERED: INSULIN DETEMIR 10 UNIT SC SCH (22:00)
[2018-06-29] MEDS: (Novolog) Insulin Aspart, Recombinant 100 u/ml 10 ml vial SC SCH (22:00)
[2018-06-29] MEDS ORDERED: (Lantus) Insulin Glargine, Recombinant SC SCH (22:00)
[2018-06-30 03:14] LABS: URINE BACTERIA RARE (<OCC); URINE BILIRUBIN NEGATIVE (NEGATIVE); URINE BLOOD NEGATIVE (NEGATIVE); URINE CLARITY Clear (Clear); URINE COLOR Yellow (YELLOW); URINE GLUCOSE (UA) 2+ mg/dL (Normal); URINE LEUKOCYTE ESTERASE NEG Leu/uL (Negative); URINE PROTEIN 3+ mg/dL (NEGATIVE); URINE UROBILINOGEN NORMAL mg/dL (0.2-1.0)
[2018-06-30] MEDS: (Novolog) Insulin Aspart, Recombinant 100 u/ml 10 ml vial SC SCH ×3 (08:15→23:22)
--- NOTE | 2018-06-30 08:52 | CT ---
Date of service: 06/29/2018 PROCEDURE: CT HEAD WITHOUT CONTRAST. HISTORY: ams COMPARISON: 02/23/2018 TECHNIQUE: Axial computed tomography images were obtained through the head/brain without intravenous contrast. Radiation dose: Total exam DLP = 1136.36 mGy-cm. This CT exam was performed using one or more of the following dose reduction techniques: Automated exposure control, adjustment of the mA and/or kV according to patient size, and/or use of iterative reconstruction technique. FINDINGS: HEMORRHAGE: No intracranial hemorrhage. BRAIN: No mass effect or edema. Bilateral frontal encephalomalacia, left greater than right. Unchanged from prior. Possibly related to prior surgery. Status post right frontal craniotomy. Aneurysm clips are seen about the [id number].. Multiple bilateral basal ganglia lacunar infarcts. Old right thalamic lacunar infarct. Old right pontine lacunar infarct. No evidence of acute infarct. Mild patchy periventricular and deep white matter microvascular ischemic change. Mild age related atrophy. VENTRICLES: Unremarkable. No hydrocephalus. CALVARIUM: Right frontal craniotomy. No acute fracture. PARANASAL SINUSES: Unremarkable as visualized. No significant inflammatory changes. MASTOID AIR CELLS: Unremarkable as visualized. No inflammatory changes. OTHER FINDINGS: Old mildly depressed right nasal fracture and nasal tip fracture IMPRESSION: No intracranial mass, hemorrhage or evidence of acute infarct. Old right frontal craniotomy. Bilateral frontal encephalomalacia change, possibly related to prior surgery. Surgical clips seen about [id number]. Multiple basal ganglia and right thalamic and right pontine lacunar infarcts. The preliminary findings for this examination were reported by [facility] at 6:22 p.m. on 06/29/2018.. There is concurrence of this report with the preliminary findings.
[2018-06-30] MEDS ORDERED: Home Med 1 UNIT (Metformin [Glucophage] 1,000 MG) PO SCH (10:00)
--- NOTE | 2018-06-30 10:21 | RAD ---
Date of service: 06/29/2018 HISTORY: ams COMPARISON: Frontal chest radiograph 06/14/2018. FINDINGS: LUNGS: No active pulmonary disease. PLEURA: No significant pleural effusion identified, no pneumothorax apparent. CARDIOVASCULAR: No aortic atherosclerotic calcification present. Normal cardiac size. No pulmonary vascular congestion. OSSEOUS STRUCTURES: Multiple old healed left rib fractures reiterated. VISUALIZED UPPER ABDOMEN: Normal. OTHER FINDINGS: None. IMPRESSION: No interval acute cardiopulmonary disease appreciated.
--- NOTE | 2018-06-30 14:35 | CT ---
Date of service: 06/29/2018 PROCEDURE: CT Angiography of the Brain and Neck. HISTORY: CODE STROKE COMPARISON: CT head and neck 08/01/2017. TECHNIQUE: CT angiography of the head and neck was performed following intravenous contrast administration. Coronal and sagittal maximum intensity projection reformatted images were generated. Contrast Dose: Visipaque 320, 100 cc Radiation dose: Total exam DLP = 576.68 mGy-cm. This CT exam was performed using one or more of the following dose reduction techniques: Automated exposure control, adjustment of the mA and/or kV according to patient size, and/or use of iterative reconstruction technique. FINDINGS: INTERNAL CEREBRAL ARTERIES: Prior distal right ICA or posterior communicating artery aneurysm clip deployment noted. The skull base, petrous, and supraclinoid segments are bilaterally widely patent. Limited bilateral cavernous ICA atherosclerotic plaque identified without significant stenosis. ANTERIOR CEREBRAL ARTERIES: Likely status post left A1 BRAYDEN aneurysm clip deployment. A1 and A2 segments are widely patent. Smaller distal branches unremarkable, as visualized. MIDDLE CEREBRAL ARTERIES: Unremarkable. M1 and M2 segments are widely patent. Perisylvian branches grossly symmetric. POSTERIOR CIRCULATION: Basilar Artery: Unremarkable. Distal Vertebral Arteries: Balanced vertebrobasilar circulation. Posterior Cerebral Arteries: Unremarkable. Posterior Inferior Cerebellar Arteries: Unremarkable. NECK CTA: Common Carotid arteries: The bilateral common carotid appear widely patent from their origins to their bifurcations with no significant stenosis appreciated. No evidence to suggest common carotid artery dissection. There is minimal atherosclerotic plaque is seen related to the proximal bilateral common carotid arteries as well as at the bulb regions without significant stenosis resulting. Internal Carotid arteries: Limited stenosis appreciate related to both calcified and noncalcified plaque at the origin of the left ICA with trace plaque identified at the right ICA origin. No significant stenosis bilaterally up to the skull base. External Carotid arteries: Appear unremarkable bilaterally. Vertebral arteries: The bilateral vertebral arteries appear normal in caliber from their origins to their distal cervical segments. No significant stenosis or definite pattern of dissection. ANEURYSM/ VASCULAR MALFORMATIONS: None. OTHER FINDINGS: Old ununited right nasal bone fracture identified as well as right parietal craniotomy. Prior bilateral BRAYDEN territory chronic infarction reiterated. Persistent abnormal position of the right true vocal cord reiterated IMPRESSION: No significant stenosis on CT angiography of the head and neck in this patient is status post prior right pterional craniotomy for apparent right ICA or PCOM and left BRAYDEN aneurysm clip deployments as per above. Neck CTA demonstrates no significant stenosis bilateral common or internal carotid arteries with vertebral artery arteries appearing widely patent bilaterally as well to the junction with the basilar artery. No definite significant interval change appreciable. Persistent potential right vocal cord paralysis. Old right nasal bone fracture reiterated.
--- NOTE | 2018-06-30 18:16 | CARD ---
APPROVED REPORT Date of service: 06/29/2018 EKG Measurement Heart [id number] CO 166P [id number] <Conclusion> Normal sinus rhythm Left axis deviation Nonspecific ST and T wave abnormality Abnormal ECG
[2018-06-30] MEDS ORDERED: INSULIN DETEMIR 10 UNIT SC SCH (22:00)
--- NOTE | 2018-07-01 06:56 | HP ---
HISTORY OF PRESENT ILLNESS: This is a 57-year-old Syrian male with history of multiple medical problems including multiple CVAs, vascular dementia, hypertension, chronic kidney disease, uncontrolled type 2 diabetes mellitus, was brought to emergency room by as the patient had symptoms of change of mental status with lethargy associated with multiple times of vomiting. The patient's stated that on the night before the admission the patient had a partial seizure in his one arm without complete loss of consciousness. The patient was on antiseizure medication that was stopped, and recently, it was resumed, Keppra was stopped and lamotrigine was started 25 mg twice a day. Other review of systems is negative. ALLERGIES: POSITIVE FOR PENICILLIN. MEDICATIONS: Reviewed and ordered as per MAR. SOCIAL HISTORY: Ex-smoker and ex-substance abuse, mainly heroin, no EtOH or other illicit drug abuse. FAMILY HISTORY: Not contributory. PAST MEDICAL HISTORY: As above. PHYSICAL EXAMINATION: GENERAL: The patient is in bed, not in any cardiopulmonary distress at the time of this examination. VITAL SIGNS: Blood pressure 163/87, temperature 98.1, respiratory rate 20 and pulse 72. HEENT: Pupils equal, reactive to light. Normal-appearing mucosa of the conjunctivae, oropharynx and nasal membrane mucosa. NECK: Supple. No JVD. No carotid bruit. No lymph node. No thyromegaly. CHEST AND LUNGS: Bilateral symmetrical expansion. Good air exchange. No rales, no rhonchi. CARDIOVASCULAR SYSTEM: PMI not localized. S1, S2. No additional sounds. ABDOMEN: Normoactive bowel sounds. No tenderness. No organomegaly. No masses. EXTREMITIES: No cyanosis, no clubbing, no edema. CENTRAL NERVOUS SYSTEM: Awake but confused and disoriented to person, time and place, and he has no lateralization in examination. ASSESSMENT: Seizure with possible postictal state, uncontrolled type 2 diabetes mellitus, chronic kidney disease, progressive vascular dementia. PLAN: Continue current medications, and we will resume lamotrigine 25 mg twice a day. Seizure precautions. IV fluid hydration. Accu-Cheks with insulin coverage. Advance diet as tolerated. Keysha Hagen MD [facility] # [id number]
[2018-07-01 07:37] LABS: CALCIUM 8.2 mg/dl (8.6-10.4)
[2018-07-01 07:58] LABS: BASO # 0.1 K/uL (0.0-0.2); BASO % 0.9 % (0.0-2.0); EOS # 0.2 K/uL (0.0-0.7); EOS % 3.5 % (0.0-4.0); MEAN CELL VOLUME 80.6 fL (80.0-94.0); MEAN CORPUSCULAR HEMOGLOBIN 27.6 pg (27.0-31.0); MEAN CORPUSCULAR HGB CONC 34.3 g/dL (33.0-37.0); MEAN PLATELET VOLUME 7.9 fL (7.2-11.7); MONO # 0.5 K/uL (0.0-0.8); MONO % 6.8 % (0.0-10.0); NEUT # 5.1 K/uL (1.8-7.0); NEUT % 73.8 % (50.0-75.0); RBC 4.47 Mil/uL (4.40-5.90); RED CELL DISTRIBUTION WIDTH 15.1 % (11.5-14.5); WHITE BLOOD COUNT 6.9 K/uL (4.8-10.8)
[2018-07-01 08:00] LABS: HEMOGLOBIN 12.3 g/dL (12.0-18.0)
[2018-07-01] MEDS: (Novolog) Insulin Aspart, Recombinant 100 u/ml 10 ml vial SC SCH ×3 (08:04→17:27)
--- NOTE | 2018-07-01 09:44 | CT ---
Date of service: 07/01/2018 PROCEDURE: CT HEAD WITHOUT CONTRAST. HISTORY: r/o stroke COMPARISON: None available. TECHNIQUE: Axial computed tomography images were obtained through the head/brain without intravenous contrast. Technique optimized using helical technique to attempted counter patient motion. Radiation dose: Total exam DLP = 1334.3 mGy-cm. This CT exam was performed using one or more of the following dose reduction techniques: Automated exposure control, adjustment of the mA and/or kV according to patient size, and/or use of iterative reconstruction technique. FINDINGS: HEMORRHAGE: No intracranial hemorrhage. BRAIN: Reiteration of bilateral frontal lobar infarcts are identified on a chronic basis as well as by thalamic chronic lacunes. Chronic lacune right leti is reiterated. No new interval infarct is appreciated throughout the supra and infratentorial brain parenchyma. Age-related neuro degenerative changes are reiterated comprised of diffuse cerebral atrophy chronic microangiopathy. VENTRICLES: Unremarkable. No hydrocephalus. CALVARIUM: Prior right parietal craniotomy is again identified status post double aneurysm clip deployment at the region of the [place]. PARANASAL SINUSES: Unremarkable as visualized. No significant inflammatory changes. MASTOID AIR CELLS: Unremarkable as visualized. No inflammatory changes. OTHER FINDINGS: None. IMPRESSION: No significant interval change in bifrontal chronic infarcts as well as multiple chronic lacunar infarctions as discussed above. Age related neuro degenerative changes are reiterated as well as prior right parietal craniotomy and double aneurysm clip deployment at the [place] region.
--- NOTE | 2018-07-01 14:50 | CP.PCM.PN ---
<Elina Reaves - Last Filed: 07/01/18 15:46> Subjective - Date & Time of Evaluation Date of Evaluation: 07/01/18 Time of Evaluation: 14:49 - Subjective Subjective: Neurology Follow-Up Note: Mr. Espinal was evaluated this afternoon at bedside. present during time of exam. Mr. Espinal admits to feeling well today. He offers no complaints, however, his states that she has noticed generalized weakness in him. Pt r eports no seizure activity while being in the hospital, though he suffers from focal seizures (left arm in particular tremors). He has residual weakness from his previous strokes. Denies h/a, dizziness, visual changes, chest pain, sob, cough, n/v/d. Objective - Vital Signs/Intake and Output Vital Signs (last 24 hours): Temp Pulse Resp BP Pulse Ox 98.1 F 71 20 149/81 99 06/30/18 23:45 06/30/18 23:45 06/30/18 23:45 06/30/18 23:45 06/30/18 23:45 - Medications Medications: Current Medications Amlodipine Besylate (Norvasc) 5 mg PO Q12 [facility] Last Admin: 07/01/18 10:55 Dose: 5 mg Aspirin (Ecotrin) 81 mg PO DAILY [facility] Bisoprolol Fumarate (Zebeta) 5 mg PO DAILY [facility] Last Admin: 07/01/18 10:55 Dose: Not Given Clopidogrel Bisulfate (Plavix) 75 mg PO DAILY [facility] Last Admin: 07/01/18 11:55 Dose: 75 mg Escitalopram Oxalate (Lexapro) [address] [facility] Last Admin: 06/29/18 23:25 Dose: 5 mg Insulin Aspart (Novolog) 0 unit SC [facility]; Protocol Last Admin: 07/01/18 12:45 Dose: 12 unit Insulin Glargine (Lantus) [address] [facility] Last Admin: 06/29/18 22:00 Dose: Not Given Lactulose (Enulose) 20 gm PO Q4H [facility] Last Admin: 07/01/18 07:58 Dose: Not Given Lamotrigine (Lamictal) 50 mg PO BID [facility] Last Admin: 07/01/18 10:57 Dose: 50 mg Losartan Potassium (Cozaar) 50 mg PO DAILY [facility] Last Admin: 07/01/18 13:00 Dose: 50 mg Memantine (Namenda) 5 mg PO HS [facility] Rosuvastatin Calcium (Crestor) 20 mg PO HS [facility] Tamsulosin HCl (Flomax) 0.4 mg PO HS [facility] Last Admin: 06/29/18 23:25 Dose: 0.4 mg - Labs Labs: 07/01/18 07:15 07/01/18 07:15 PT 12.3 SECONDS (9.7-12.2) H 06/29/18 18:29 INR 1.1 06/29/18 18:29 APTT 28 SECONDS (21-34) 06/29/18 18:29 - Constitutional Appears: Well, Non-toxic, No Acute Distress - Head Exam Head Exam: NORMAL INSPECTION (old frontal area surgical site), NORMOCEPHALIC - Eye Exam Eye Exam: EOMI, Normal appearance, PERRL Pupil Exam: NORMAL ACCOMODATION, PERRL - ENT Exam ENT Exam: Mucous Membranes Moist - Neck Exam Neck Exam: Full ROM, Normal Inspection - Respiratory Exam Respiratory Exam: NORMAL BREATHING PATTERN - Extremities Exam Extremities Exam: absent: Calf Tenderness, Full ROM, Pedal Edema Additional comments: residual left sided weakness from multiple old cva - Back Exam Back Exam: Full ROM - Neurological Exam Neurological Exam: Alert, Awake, Reflexes Normal. absent: Oriented x3 Neuro motor strength exam: Left Upper Extremity: 4 (seam hammerer 4/5), Right Upper Extremity: 5, Left Lower Extremity: 4 (dorsiflexion 4/5), Right Lower Extremity: 5 Additional comments: speech clear, fluid awake, alert, disoriented x2 (oriented to place); follows commands no facial asymmetry no tremors noted reflexes normal sensation intact b/l - Psychiatric Exam Psychiatric exam: Normal Affect, Normal Mood - Skin Skin Exam: Normal Color Assessment and Plan - Assessment and Plan (Free Text) Assessment: Assessment: Mr. Espinal is a 57 y/o M who was admitted for suspected stroke vs seizure. Unable to do a MRI brain 2/2 cerebral metal clips. He has a h/o multiple CVA's, seizures that started and were diagnosed recently, and cerebral surgery from over 20 years ago. He currently sees Dr. Kizzy Diaz and Dr. Skaggs (neuro) in the office for outpatient management. He has been seizure free since admission. Imaging reviewed: -CT Head (07/01/18): No significant interval change in bifrontal chronic infarcts as well as multiple chronic lacunar infarctions as discussed above. Age related neuro degenerative changes are reiterated as well as prior right parietal craniotomy and double aneurysm clip deployment at the [place] region. -CT Head (06/29/18): No intracranial mass, hemorrhage or evidence of acute infarct. Old right frontal craniotomy. Bilateral frontal encephalomalacia zen nge, possibly related to prior surgery. Surgical clips seen about [id number]. Multiple basal ganglia and right thalamic and right pontine lacunar infarcts. -CTA Head and Neck (06/29/18): No significant stenosis on CT angiography of the head and neck in this patient is status post prior right pterional craniotomy for apparent right ICA or PCOM and left BRAYDEN aneurysm clip deployments as per abo ve. Neck CTA demonstrates no significant stenosis bilateral common or internal carotid arteries with vertebral artery arteries appearing widely patent bilaterally as well to the junction with the basilar artery. No definite significant interval change appreciable. Persistent potential right vocal cord paralysis. Old right nasal bone fracture reiterated. -Continue Lamictal 50 mg PO BID. -Continue seizure precautions. -Continue ASA, Plavix, Statin. -Continue PT/OT -No need for EEG at this time. Pt has one done on 05/26 (report with ; reviewed by me). -Notify neuro team of any acute changes. Discussed with Dr. Subramanian <Kristy Subramanian - Last Filed: 07/04/18 14:19> Objective - Vital Signs/Intake and Output Vital Signs (last 24 hours): Temp Pulse Resp BP Pulse Ox 98.3 F 72 18 167/76 H 97 07/02/18 16:00 07/02/18 16:00 07/02/18 16:00 07/02/18 16:00 07/02/18 16:00 - Labs Labs: 07/01/18 07:15 07/01/18 07:15 PT 12.3 SECONDS (9.7-12.2) H 06/29/18 18:29 INR 1.1 06/29/18 18:29 APTT 28 SECONDS (21-34) 06/29/18 18:29 Assessment and Plan - Assessment and Plan (Free Text) Plan: I examined the patient with the CONTENT DEVELOPMENT SPECIALIST and agree with assessment and plan. Thank you Dr. subramanian
[2018-07-01] MEDS: (Lantus) Insulin Glargine, Recombinant SC SCH (21:45)
[2018-07-01] MEDS ORDERED: (Lantus) Insulin Glargine, Recombinant SC SCH (22:00)
[2018-07-01] MEDS ORDERED: (Novolog) Insulin Aspart, Recombinant 100 u/ml 10 ml vial SC STA (22:28)
--- NOTE | 2018-07-01 23:54 | PN ---
DATE: 07/01/2018 SUBJECTIVE: The patient is seen today, 07/01/2018. He is more alert and awake. PHYSICAL EXAMINATION: VITAL SIGNS: Blood pressure 151/82, temperature 97.8, respiratory rate 20, and pulse 70. HEENT: Pupils equal, reactive to light. Normal-appearing mucosa of the conjunctivae, oropharynx, and nasal membrane mucosa. NECK: Supple. No JVD. No carotid bruit. No lymph node. No thyromegaly. CHEST AND LUNGS: Bilateral symmetrical expansion. Good air exchange. No rales. No rhonchi. CARDIOVASCULAR SYSTEM: PMI not localized. S1, S2. No additional sounds. ABDOMEN: Normoactive bowel sounds. No tenderness. No organomegaly. No masses. EXTREMITIES: No cyanosis, no clubbing, no edema. CENTRAL NERVOUS SYSTEM: Awake, but confused, and moves all extremities equally. ASSESSMENT: 1. Recurrent seizure episodes. 2. Progressive vascular dementia. 3. Status post multiple cerebrovascular accidents. 4. Hypertension. 5. Type 2 diabetes mellitus with hyperglycemia. PLAN: Continue current medications and follow neurology recommendations and increase glargine insulin to 20 units twice a day. Keysha Hagen MD
[2018-07-02] MEDS ORDERED: (Novolog) Insulin Aspart, Recombinant 100 u/ml 10 ml vial SC SCH (07:30)
[2018-07-02 08:16] VITALS: RESP 18
[2018-07-02] MEDS: (Novolog) Insulin Aspart, Recombinant 100 u/ml 10 ml vial SC SCH ×3 (10:50→17:52)
[2018-07-02] MEDS: (Lantus) Insulin Glargine, Recombinant SC SCH (10:50)
--- NOTE | 2018-07-02 14:41 | CP.PCM.PN ---
Subjective - Date & Time of Evaluation Date of Evaluation: 07/02/18 Time of Evaluation: 14:41 - Subjective Subjective: PATIENT SEEN AND EXAMINED AT THE BEDSIDE Objective - Vital Signs/Intake and Output Vital Signs (last 24 hours): Temp Pulse Resp BP Pulse Ox 98.0 F 73 18 162/89 H 98 07/02/18 07:30 07/02/18 07:30 07/02/18 07:30 07/02/18 07:30 07/02/18 07:30 Intake and Output: 07/02/18 07/02/18 06:59 18:59 Intake Total 250 Balance 250 - Medications Medications: Current Medications Amlodipine Besylate (Norvasc) 2.5 mg PO HS [facility] Last Admin: 07/01/18 21:44 Dose: 2.5 mg Aspirin (Ecotrin) 81 mg PO Q48H [facility] Bisoprolol Fumarate (Zebeta) 5 mg PO Q24H [facility] Clopidogrel Bisulfate (Plavix) 75 mg PO DAILY [facility] Last Admin: 07/02/18 10:49 Dose: 75 mg Escitalopram Oxalate (Lexapro) 5 mg PO [facility] Last Admin: 07/01/18 21:45 Dose: 5 mg Insulin Aspart (Novolog) 0 unit SC [facility]; Protocol Last Admin: 07/02/18 11:35 Dose: 10 units Insulin Glargine (Lantus) 20 unit SC Q12 [facility] Last Admin: 07/02/18 10:50 Dose: 20 unit Lamotrigine (Lamictal) 50 mg PO BID [facility] Last Admin: 07/02/18 11:25 Dose: 50 mg Losartan Potassium (Cozaar) 50 mg PO DAILY [facility] Last Admin: 07/02/18 10:50 Dose: 50 mg Memantine (Namenda) 5 mg PO HS [facility] Last Admin: 07/01/18 21:44 Dose: 5 mg Rosuvastatin Calcium (Crestor) 20 mg PO HS [facility] Last Admin: 07/01/18 21:44 Dose: 20 mg Tamsulosin HCl (Flomax) 0.4 mg PO DAILY@1600 [facility] - Labs Labs: 07/01/18 07:15 07/01/18 07:15 PT 12.3 SECONDS (9.7-12.2) H 06/29/18 18:29 INR 1.1 06/29/18 18:29 APTT 28 SECONDS (21-34) 06/29/18 18:29 Assessment and Plan - Assessment and Plan (Free Text) Assessment: PLACE UNDER THE SERVICE OF DR CONRAD [facility] ----CALL FOR ADMITTING ORDER CONTINUE HOME MEDITATION ORDER ACTIVITY TOLERATED CALL DR CONRAD FOR FURTHER ORDER
[2018-07-02 16:12] VITALS: BP 167/76; PULSE 72; TEMP 98.3; O2SAT 97
--- NOTE | 2018-07-04 03:32 | DS ---
REASON FOR ADMISSION: This is a 57-year-old [place] male with history of multiple CVAs and vascular dementia, was admitted for seizure disorder with possible postictal state. HOSPITAL COURSE: The patient was admitted to telemetry floor and he was placed on seizure precaution. The patient had a neurology consultation done by Dr. Griffith. The patient was started on Lamictal and it was increased to 50 mg twice a day. The patient had no further seizure during that admission and physical therapy was started and the patient was discharged to acute rehabilitation at [facility] and to continue his current medications. FINAL DIAGNOSES: Seizure disorder, cerebrovascular accident, vascular dementia, hypertension, type 2 diabetes mellitus. [facility] MD Hieu
== END 2018-07-02 21:30 | DRG 57 ==
LOC: C.ER 17:53 → C.9E 19:24 → OBSVTOIN 19:45 → C.6T 20:29
PROVIDERS: ADMIT Internal Medicine; ATTEND Internal Medicine
DX: I69.398 Other sequelae of cerebral infarction (principal); G40.89 Other seizures; F01.50 Vascular dementia, unspecified severity, without behavioral disturbance, psychotic disturbance, mood disturbance, and anxiety; I69.354 Hemiplegia and hemiparesis following cerebral infarction affecting left non-dominant side; E11.65 Type 2 diabetes mellitus with hyperglycemia; I12.9 Hypertensive chronic kidney disease with stage 1 through stage 4 chronic kidney disease, or unspecified chronic kidney disease; E11.22 Type 2 diabetes mellitus with diabetic chronic kidney disease; N18.9 Chronic kidney disease, unspecified; J43.9 Emphysema, unspecified; G47.30 Sleep apnea, unspecified; E78.00 Pure hypercholesterolemia, unspecified; Z87.891 Personal history of nicotine dependence

== ENCOUNTER 2018-10-13 04:06 | Inpatient (IN) | payer BC ==
[2018-10-13 04:06] VITALS: BMI 26.6
[2018-10-13] MEDS ORDERED: Sodium Chloride 0.9% 1,000 ML IV ONE (05:04)
[2018-10-13] MEDS ORDERED: Pantoprazole 80 MG in Sodium Chloride 0.9% 100 ML IV STA ×4 (05:04→09:40)
[2018-10-13 05:21] LABS: BASO # 0.1 K/uL (0.0-0.2); BASO % 0.8 % (0.0-2.0); EOS # 0.1 K/uL (0.0-0.7); EOS % 0.7 % (0.0-4.0); HEMOGLOBIN 13.3 g/dL (12.0-18.0); LYMPH # 1.1 K/uL (1.0-4.3); LYMPH % 9.2 % (20.0-40.0); MEAN CELL VOLUME 80.3 fL (80.0-94.0); MEAN CORPUSCULAR HEMOGLOBIN 27.4 pg (27.0-31.0); MEAN CORPUSCULAR HGB CONC 34.1 g/dL (33.0-37.0); MEAN PLATELET VOLUME 8.6 fL (7.2-11.7); MONO # 0.3 K/uL (0.0-0.8); MONO % 2.5 % (0.0-10.0); NEUT # 10.4 K/uL (1.8-7.0); NEUT % 86.8 % (50.0-75.0); PLATELET COUNT 153 K/uL (130-400); RBC 4.84 Mil/uL (4.40-5.90); RED CELL DISTRIBUTION WIDTH 14.7 % (11.5-14.5)
--- NOTE | 2018-10-13 05:28 | C.PDOC ---
History Of Present Illness 58 year old male with Hx of past CVA, diabetes, and HTN presents with relative complaining of abdominal discomfort since last night and two episodes of vomiting with bloody material in the vomitus. Patient also reports one episode o f loose stool but no blood. Denies fever or recent travel. Time Seen by Provider: 10/13/18 04:32 Chief Complaint (Nursing): Abdominal Pain History Per: Patient History/Exam Limitations: no limitations Onset/Duration Of Symptoms: Hrs Current Symptoms Are (Timing): Still Present Associated Symptoms: Vomiting (Bloody), Other (Loose stool). denies: Fever Exacerbating Factors: None Alleviating Factors: None Recent travel outside of the [place]: No Past Medical History Reviewed: Historical Data, Nursing Documentation, Vital Signs Vital Signs: Last Vital Signs Temp 98.2 F 10/13/18 04:24 Pulse 82 10/13/18 04:24 Resp 20 10/13/18 04:24 BP 172/87 H 10/13/18 04:24 Pulse Ox 96 10/13/18 04:24 - Medical History PMH: Bronchitis, COPD, Dementia (Vascular dementia), Diabetes, Emphysema, Fr actures (Hx rib fractures), HTN, Hypercholesterolemia, Chronic Kidney Disease, Seizures (seizure disorder), Sleep Apnea Denies: HIV, Hypothyroidism, Sickle Cell Disease, TIA - [facility] Procedures BATH/SHOWER TECHNQ TREATMENT USING ASSIST EQUIPMENT (08/03/17) BED MOBILITY TREATMENT USING ASSIST EQUIPMENT (08/03/17) COMM/COGNIT SKILL TREATMENT USING AUGMENT COMM EQUIPMENT (07/02/18) COMMUNICATIVE/COGNITIVE INTEGRATION SKILLS TREATMENT (08/03/17) DRESSING TECHNIQUES TREATMENT USING ASSIST EQUIPMENT (08/03/17) EXERCISE TREATMENT OF MUSCULOSK WHOLE USING ASSIST EQUIPMENT (07/02/18) EXERCISE TRMT MUSCULOSK LOW BACK/LE W ASSIST EQUIP (08/03/17) GAIT TRAINING/AMBULAT TREATMENT USING ASSIST EQUIPMENT (07/02/18) GROOMING/PERSONAL HYGIENE TREATMENT USING ASSIST EQUIPMENT (08/03/17) HOME MANAGEMENT TREATMENT USING ASSIST EQUIPMENT (07/02/18) NEBULIZER THERAPY (11/08/14) NON-INVASIVE MECHANICAL VENTILATION (08/04/13) TRANSFER TRAINING TREATMENT USING ASSIST EQUIPMENT (08/03/17) Family History: States: Unknown Family Hx - Social History Hx Tobacco Use: Yes Hx Alcohol Use: No Hx Substance Use: Yes (ex-substance abuse-heroin) - Immunization History Hx Tetanus Toxoid Vaccination: No Hx Influenza Vaccination: Yes Hx Pneumococcal Vaccination: No Review Of Systems Constitutional: Negative for: Fever Cardiovascular: Negative for: Chest Pain, Palpitations Respiratory: Negative for: Cough, Shortness of Breath Gastrointestinal: Positive for: Vomiting, Abdominal Pain, Other (Loose stools) Genitourinary: Negative for: Dysuria, Hematuria Physical Exam - Physical Exam Appears: Non-toxic Skin: Normal Color, Warm Head: Atraumatic, Normacephalic Oral Mucosa: Moist Chest: Symmetrical, No Tenderness Cardiovascular: Rhythm Regular Respiratory: Normal Breath Sounds, No Rales, No Rhonchi, No Wheezing Gastrointestinal/Abdominal: Soft, No Tenderness Back: No CVA Tenderness Neurological/Psych: Oriented x3, Normal Speech ED Course And Treatment - Laboratory Results Result Diagrams: 10/13/18 05:07 10/13/18 05:07 Lab Results: Lipase 241 U/L (23-300) 10/13/18 05:07 O2 Sat by Pulse Oximetry: 96 (Room air) Pulse Ox Interpretation: Normal Progress Note: Blood work ordered. Protonix, IV fluids, and zofran administered. Disposition Counseled Patient/Family Regarding: Diagnosis, Need For Followup - Disposition Disposition Time: 07:02 Condition: STABLE - Clinical Impression Clinical Impression: Abdominal pain, Vomiting - PA / HARMONICA MAKER / Resident Statement MD/DO has reviewed & agrees with the documentation as recorded. - Scribe Statement The provider has reviewed the documentation as recorded by the Scribnorberto Ceballos All medical record entries made by the Scribe were at my direction and personally dictated by me. I have reviewed the chart and agree that the record accurately reflects my personal performance of the history, physical exam, medical decision making, and the department course for this patient. I have also personally directed, reviewed, and agree with the discharge instructions and disposition. Physician Patient Turnover Patient Signed Over To: Naya Green Handoff Comments: pending CT results and reeval
[2018-10-13 05:35] LABS: ALB/GLOB RATIO 1.1 (1.0-2.1); ALBUMIN 3.7 g/dL (3.5-5.0)
[2018-10-13 06:12] LABS: LYMPHOCYTE 10 % (20-40); MONOCYTE 3 % (0-10); NEUTROPHIL 87 % (50-75); PLATELET CLUMPS PRESENT; PLATELET ESTIMATE NORMAL (NORMAL); TOTAL CELLS COUNTED 100
[2018-10-13 06:44] LABS: INR 1.1; PROTHROMBIN TIME 11.8 SECONDS (9.7-12.2)
--- NOTE | 2018-10-13 08:42 | CT ---
Date of service: 10/13/2018 PROCEDURE: CT Abdomen and Pelvis without intravenous contrast HISTORY: Abdominal pain and vomiting COMPARISON: None. TECHNIQUE: CT scan of the abdomen and pelvis was performed without administration of intravenous contrast. Oral contrast was not administered. Coronal and sagittal reformatted images were obtained. Radiation dose: Total exam DLP = 1030.34 mGy-cm. This CT exam was performed using one or more of the following dose reduction techniques: Automated exposure control, adjustment of the mA and/or kV according to patient size, and/or use of iterative reconstruction technique. FINDINGS: LOWER THORAX: The visualized right lung is clear. There is subsegmental atelectasis in the left lung base LIVER: Normal in size. No gross lesion or ductal dilatation. GALLBLADDER AND BILE DUCTS: Well distended. No calcified gallstones. No common bile duct dilatation. PANCREAS: Normal in size. No gross lesion or ductal dilatation. SPLEEN: Normal in size. ADRENALS: Normal in size. No discrete nodule. KIDNEYS AND URETERS: Both kidneys are normal in size. There is a 2.1 x 2.0 cm high attenuation lesion in the lower pole of the left kidney posteriorly. No hydronephrosis or nephrolithiasis. There is nonspecific perinephric fat stranding. VASCULATURE: Normal in caliber. No aortic aneurysm. No aortic atherosclerotic calcification or mural plaque present. BOWEL: Evaluation of the bowel is limited in the absence of oral contrast. There are fluid filled normal caliber small bowel loops. There is fluid in the ascending colon and scattered amount of stool in the transverse and left hemicolon. APPENDIX: Normal appendix. PERITONEUM: No free fluid. No free air. LYMPH NODES: No enlarged lymph nodes. BLADDER: There is mild circumferential mural thickening of the urinary bladder wall. REPRODUCTIVE: There is mild enlargement of the prostate gland. BONES: No acute fracture. Within normal limits for the patient's age. OTHER FINDINGS: A urachal remnant is identified and there is a small fat containing umbilical hernia. There is a small sliding hiatal hernia. IMPRESSION: 1. Findings may represent nonspecific enterocolitis. No bowel obstruction. 2. Mild circumferential mural thickening of the urinary bladder wall could represent cystitis in the appropriate setting. Please correlate with urine analysis. 3. Mild enlargement of the prostate gland. Please correlate with PSA levels. 4. 2.1 x 2.0 cm high attenuation lesion in the posterior aspect of the lower pole of the left kidney, not completely characterized on this noncontrast examination. Correlation with retroperitoneal ultrasound is recommended for further evaluation. A preliminary report was provided by [facility]. The final report is tagged to the PA review folder.
--- NOTE | 2018-10-13 11:29 | CP.PCM.HP ---
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 Patient is Irish speaking and is at bedside and helps with translation and history. For past 5 days, pt experiencing acid reflux symptoms. At 2 am on 10/13/18, pt woke up and had 1 large episode of bloody vomiting. He then proceeded to have 1 episode of loose bowel movement (non-bloody). Patient did not complain of any abdominal pain accompanying the vomiting or diarrhea. Patient denies having any fevers, chills, abdominal pain, nausea, vomiting, dysuria, hematuria, blood in stool in past. Denies sick contact or recent travels. Patient goes ot adult day care in am but no sick contacts at that facility. Patient has never had any endoscopic procedure in past. Patient had cerebral aneurysm 27 years ago that was clipped and he was started on Aspirin and Plavix after that. PMHx: stated above Sx: cerebral aneurysm clipping 27 yrs ago Social: former smoker for >30 yrs, quit in 2018. Denies ETOH or drug use FamHx: father with hypertension and Diabetes Allergies: penicillin (unsure of reaction) Meds; See MAR Present on Admission - Present on Admission Any Indicators Present on Admission: No Review of Systems - Constitutional Constitutional: absent: Chills, Fever - EENT Eyes: absent: Blurred Vision, Change in Vision, Discharge Nose/Mouth/Throat: absent: Nasal Congestion, Nasal Discharge - Cardiovascular Cardiovascular: absent: Chest Pain, Dyspnea, Edema - Respiratory Respiratory: absent: Cough, Dyspnea, Wheezing - Gastrointestinal Gastrointestinal: Diarrhea, Heartburn, Vomiting. absent: Abdominal Pain, Bloating, Constipation, Dysphagia, Nausea - Genitourinary Genitourinary: absent: Difficulty Urinating, Dysuria, Urinary Frequency, Urinary Urgency - Musculoskeletal Musculoskeletal: absent: Back Pain, Numbness, Tingling - Integumentary Integumentary: absent: Lesions, Rash - Neurological Neurological: Focal Weakness, Weakness. absent: Syncope - Psychiatric Psychiatric: absent: Anxiety, Depression Past Patient History - Infectious Disease Hx of Infectious Diseases: None - Tetanus Immunizations Tetanus Immunization: Unknown - Past Medical History & Family History Past Medical History?: Yes - Past Social History Smoking Status: Former Smoker Alcohol: None Drugs: Denies Home Situation {Lives}: With Family - CARDIAC Hx Hypercholesterolemia: Yes Hx Hypertension: Yes - PULMONARY Hx Bronchitis: Yes Hx Chronic Obstructive Pulmonary Disease (COPD): Yes Hx Emphysema: Yes Hx Sleep Apnea: Yes - NEUROLOGICAL Hx Dementia: Yes (Vascular dementia) Hx Seizures: Yes (seizure disorder) Hx Transient Ischemic Attacks (TIA): No - HEENT Hx HEENT Problems: No - RENAL Hx Chronic Kidney Disease: Yes - ENDOCRINE/METABOLIC Hx Hypothyroidism: No - HEMATOLOGICAL/ONCOLOGICAL Hx Human Immunodeficiency Virus (HIV): No Hx Sickle Cell Disease: No - INTEGUMENTARY Hx Dermatological Problems: No - MUSCULOSKELETAL/RHEUMATOLOGICAL Hx Fractures: Yes (Hx rib fractures) - GASTROINTESTINAL Hx Gastrointestinal Disorders: No - GENITOURINARY/GYNECOLOGICAL Hx Genitourinary Disorders: Yes Hx Incontinence: Yes - PSYCHIATRIC Hx Substance Use: Yes (ex-substance abuse-heroin) - SURGICAL HISTORY Hx Surgeries: Yes Other/Comment: Brain Aneurysm w/ Clipping. - ANESTHESIA Hx Anesthesia: Yes Hx Anesthesia Reactions: No Hx Malignant Hyperthermia: No Meds Allergies/Adverse Reactions: Allergies Allergy/AdvReac Type Severity Reaction Status Date / Time Penicillins Allergy ITCHING Verified 07/02/18 23:01 Physical Exam - Constitutional Appears: Non-toxic, No Acute Distress - Head Exam Head Exam: ATRAUMATIC, NORMOCEPHALIC - ENT Exam ENT Exam: Mucous Membranes Moist - Respiratory Exam Respiratory Exam: Clear to Auscultation Bilateral. absent: Accessory Muscle Use, Rhonchi, Wheezes, Respiratory Distress - Cardiovascular Exam Cardiovascular Exam: REGULAR RHYTHM, +S1, +S2. absent: Diastolic murmur, Gallop, Rubs, Systolic Murmur - GI/Abdominal Exam GI & Abdominal Exam: Normal Bowel Sounds, Soft. absent: Distended, Firm, Guarding, Organomegaly, Rigid, Tenderness - Extremities Exam Extremities exam: Negative for: pedal edema, tenderness - Neurological Exam Neurological exam: Alert, CN II-XII Intact Additional comments: oriented x 2, mild left sided facial weakness. 4/5 strength B/L in UE and LE - Psychiatric Exam Psychiatric exam: Normal Affect, Normal Mood - Skin Skin Exam: Dry, Intact, Normal Color, Warm Results - Vital Signs Recent Vital Signs: Last Vital Signs Temp 97.6 F 10/13/18 11:03 Pulse 73 10/13/18 11:03 Resp 14 10/13/18 11:03 BP 153/66 H 10/13/18 11:03 Pulse Ox 99 10/13/18 11:03 - Labs Result Diagrams: 10/13/18 05:07 10/13/18 05:07 Labs: Laboratory Results - last 24 hr 10/13/18 10/13/18 10/13/18 04:18 05:07 05:07 WBC 12.0 H D RBC 4.84 Hgb 13.3 Hct 38.9 MCV 80.3 MCH 27.4 MCHC 34.1 RDW 14.7 H Plt Count 153 MPV 8.6 Neut % (Auto) 86.8 H Lymph % (Auto) 9.2 L [place] % (Auto) 2.5 Eos % (Auto) 0.7 Baso % (Auto) 0.8 Neut # (Auto) 10.4 H Lymph # (Auto) 1.1 [place] # (Auto) 0.3 Eos # (Auto) 0.1 Baso # (Auto) 0.1 Neutrophils % (Manual) 87 H Lymphocytes % (Manual) 10 L Monocytes % (Manual) 3 Platelet Estimate Normal Plt Clumps, EDTA Present PT INR APTT Sodium 134 Potassium 5.6 H Chloride 105 Carbon Dioxide 19 L Anion Gap 15 BUN 37 H Creatinine 2.6 H Est GFR ( Amer) 31 Est GFR (Non-Af Amer) 25 POC Glucose (mg/dL) 258 H Random Glucose 264 H D Calcium 9.0 Total Bilirubin 0.7 AST 37 ALT 16 L D Alkaline Phosphatase 67 Total Protein 7.0 Albumin 3.7 Globulin 3.2 Albumin/Globulin Ratio 1.1 Lipase 241 Blood Type Antibody Screen 10/13/18 10/13/18 06:30 06:30 WBC RBC Hgb Hct MCV MCH MCHC RDW Plt Count MPV Neut % (Auto) Lymph % (Auto) [place] % (Auto) Eos % (Auto) Baso % (Auto) Neut # (Auto) Lymph # (Auto) [place] # (Auto) Eos # (Auto) Baso # (Auto) Neutrophils % (Manual) Lymphocytes % (Manual) Monocytes % (Manual) Platelet Estimate Plt Clumps, EDTA PT 11.8 INR 1.1 APTT 28 Sodium Potassium Chloride Carbon Dioxide Anion Gap BUN Creatinine Est GFR ( Amer) Est GFR (Non-Af Amer) POC Glucose (mg/dL) Random Glucose Calcium Total Bilirubin AST ALT Alkaline Phosphatase Total Protein Albumin Globulin Albumin/Globulin Ratio Lipase Blood Type AB POSITIVE Antibody Screen Negative Assessment & Plan - Assessment and Plan (Free Text) Assessment: 58 year old male with IDDM, HTN, HLD, 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 On admission, CT of abd/pelvis w/o contrast showed nonspecific colitis, urinary bladder thickening, mildly enlarged PSA and small kidney lesion. GI bleed - H/H on admission was 13.3/38.9 - BUN/Cr on admission 37/2.6 - NPO - GI, Dr. Ellis consulted. Plan for EGD today with Dr. Ellis. Pt received Reglan 10 mg IVP before procedure per recs by Dr. Ellis. - Repeat CBC, CMP pending - Received 1 L of NS in ED. Will continue NS at 100 - Received 80 mg IVP of protonix. Continue IV protonix 8mg/hr - Type and Cross obtained, consent in chart - Aspiration precautions - Hold home Aspirin and plavix Colitis - Ct on admission showed non-specific colitis - GI consulted - Started on Cipro 400 mg IV Q12 and Flagyl 500 mg IV q8 - Stool culture, ova/parasite, giardia, stool occult ordered Bladder wall thickening - UA, urine culture and PSA ordered Hyperkalemia - May be 2/2 GI bleed vs. medications - EKG showed NSR with no T wave changes, normal intervals. -Will repeat CMP Hx of CVA - Hold Aspirin and plavix - Will continue statin therapy once patient is eating - PT/OT - Echo ordered IDDM - Hgb A1c in 06/2018 9.8 - Will continue home Lantus at 10 units BID - ISS low dose - hypoglycemia protocol - Accuchecks q6 Acute on chronic kidney disease - BUN/Cr on admission 37/2.6 - Baseline Cr is 2.2 - Continue NS at 100 cc - Nephro, Dr. Pereira consulted HTN - Hold home BPO medications - Lopressor 5 mg IVP prn for SBP >160. Hold for HR <60 HLD - Hold oral medications - Will continue statin therapy once patient is eating Seizure - will hold home lamictal for now - Seizure precautions and q4 neurochecks Prophylaxis - SCDs. Chemical ppx contraindicated due to possible GI bleed - Protonix Case discussed with attending, Dr. Newton - Date & Time Date: 10/13/18 Time: 11:32 <Maggie Newton V - Last Filed: 10/13/18 20:53> Results - Vital Signs Recent Vital Signs: Last Vital Signs Temp 97.7 F 10/13/18 15:00 Pulse 70 10/13/18 15:00 Resp 18 10/13/18 15:00 BP 153/75 H 10/13/18 15:00 Pulse Ox 99 10/13/18 15:00 - Labs Result Diagrams: 10/13/18 17:23 10/13/18 05:07 Labs: Laboratory Results - last 24 hr 10/13/18 10/13/18 10/13/18 04:18 05:07 05:07 WBC 12.0 H D RBC 4.84 Hgb 13.3 Hct 38.9 MCV 80.3 MCH 27.4 MCHC 34.1 RDW 14.7 H Plt Count 153 MPV 8.6 Neut % (Auto) 86.8 H Lymph % (Auto) 9.2 L [place] % (Auto) 2.5 Eos % (Auto) 0.7 Baso % (Auto) 0.8 Neut # (Auto) 10.4 H Lymph # (Auto) 1.1 [place] # (Auto) 0.3 Eos # (Auto) 0.1 Baso # (Auto) 0.1 Neutrophils % (Manual) 87 H Lymphocytes % (Manual) 10 L Monocytes % (Manual) 3 Platelet Estimate Normal Plt Clumps, EDTA Present PT INR APTT Sodium 134 Potassium 5.6 H Chloride 105 Carbon Dioxide 19 L Anion Gap 15 BUN 37 H Creatinine 2.6 H Est GFR ( Amer) 31 Est GFR (Non-Af Amer) 25 POC Glucose (mg/dL) 258 H Random Glucose 264 H D Calcium 9.0 Total Bilirubin 0.7 AST 37 ALT 16 L D Alkaline Phosphatase 67 Total Protein 7.0 Albumin 3.7 Globulin 3.2 Albumin/Globulin Ratio 1.1 Lipase 241 Urine Color Urine Clarity Urine pH Ur Specific [place] Urine Protein Urine Glucose (UA) Urine Ketones Urine Blood Urine Nitrate Urine Bilirubin Urine Urobilinogen Ur Leukocyte Esterase Urine WBC (Auto) Urine RBC (Auto) Urine Bacteria Urine Sperm (Auto) Ur Random Creatinine Ur Random Sodium Stool Occult Blood Hep Bs Antigen Hep Bs Antibody Hep B Core IgM Ab Hepatitis C Antibody HIV 1&2 Antibody Screen Blood Type Antibody Screen 10/13/18 10/13/18 10/13/18 06:30 06:30 16:34 WBC RBC Hgb Hct MCV MCH MCHC RDW Plt Count MPV Neut % (Auto) Lymph % (Auto) [place] % (Auto) Eos % (Auto) Baso % (Auto) Neut # (Auto) Lymph # (Auto) [place] # (Auto) Eos # (Auto) Baso # (Auto) Neutrophils % (Manual) Lymphocytes % (Manual) Monocytes % (Manual) Platelet Estimate Plt Clumps, EDTA PT 11.8 INR 1.1 APTT 28 Sodium Potassium Chloride Carbon Dioxide Anion Gap BUN Creatinine Est GFR ( Amer) Est GFR (Non-Af Amer) POC Glucose (mg/dL) 204 H Random Glucose Calcium Total Bilirubin AST ALT Alkaline Phosphatase Total Protein Albumin Globulin Albumin/Globulin Ratio Lipase Urine Color Urine Clarity Urine pH Ur Specific [place] Urine Protein Urine Glucose (UA) Urine Ketones Urine Blood Urine Nitrate Urine Bilirubin Urine Urobilinogen Ur Leukocyte Esterase Urine WBC (Auto) Urine RBC (Auto) Urine Bacteria Urine Sperm (Auto) Ur Random Creatinine Ur Random Sodium Stool Occult Blood Hep Bs Antigen Hep Bs Antibody Hep B Core IgM Ab Hepatitis C Antibody HIV 1&2 Antibody Screen Blood Type AB POSITIVE Antibody Screen Negative 10/13/18 10/13/18 10/13/18 17:23 17:23 17:23 WBC RBC Hgb Hct MCV MCH MCHC RDW Plt Count MPV Neut % (Auto) Lymph % (Auto) [place] % (Auto) Eos % (Auto) Baso % (Auto) Neut # (Auto) Lymph # (Auto) [place] # (Auto) Eos # (Auto) Baso # (Auto) Neutrophils % (Manual) Lymphocytes % (Manual) Monocytes % (Manual) Platelet Estimate Plt Clumps, EDTA PT INR APTT Sodium Potassium Chloride Carbon Dioxide Anion Gap BUN Creatinine Est GFR ( Amer) Est GFR (Non-Af Amer) POC Glucose (mg/dL) Random Glucose Calcium Total Bilirubin AST ALT Alkaline Phosphatase Total Protein Albumin Globulin Albumin/Globulin Ratio Lipase Urine Color Urine Clarity Urine pH Ur Specific [place] Urine Protein Urine Glucose (UA) Urine Ketones Urine Blood Urine Nitrate Urine Bilirubin Urine Urobilinogen Ur Leukocyte Esterase Urine WBC (Auto) Urine RBC (Auto) Urine Bacteria Urine Sperm (Auto) Ur Random Creatinine Ur Random Sodium Stool Occult Blood Hep Bs Antigen Negative Hep Bs Antibody Negative Hep B Core IgM Ab Negative Hepatitis C Antibody Negative HIV 1&2 Antibody Screen Negative Blood Type Antibody Screen 10/13/18 10/13/18 10/13/18 17:23 18:56 18:56 WBC 8.4 RBC 4.01 L Hgb 10.6 L D Hct 32.1 L MCV 80.0 MCH 26.3 L MCHC 32.9 L RDW 14.1 Plt Count 291 D MPV 7.5 Neut % (Auto) Lymph % (Auto) [place] % (Auto) Eos % (Auto) Baso % (Auto) Neut # (Auto) Lymph # (Auto) [place] # (Auto) Eos # (Auto) Baso # (Auto) Neutrophils % (Manual) Lymphocytes % (Manual) Monocytes % (Manual) Platelet Estimate Plt Clumps, EDTA PT INR APTT Sodium Potassium Chloride Carbon Dioxide Anion Gap BUN Creatinine Est GFR ( Amer) Est GFR (Non-Af Amer) POC Glucose (mg/dL) Random Glucose Calcium Total Bilirubin AST ALT Alkaline Phosphatase Total Protein Albumin Globulin Albumin/Globulin Ratio Lipase Urine Color Urine Clarity Urine pH Ur Specific [place] Urine Protein Urine Glucose (UA) Urine Ketones Urine Blood Urine Nitrate Urine Bilirubin Urine Urobilinogen Ur Leukocyte Esterase Urine WBC (Auto) Urine RBC (Auto) Urine Bacteria Urine Sperm (Auto) Ur Random Creatinine 92.8 Ur Random Sodium 64 Stool Occult Blood Positive H Hep Bs Antigen Hep Bs Antibody Hep B Core IgM Ab Hepatitis C Antibody HIV 1&2 Antibody Screen Blood Type Antibody Screen 10/13/18 18:56 WBC RBC Hgb Hct MCV MCH MCHC RDW Plt Count MPV Neut % (Auto) Lymph % (Auto) [place] % (Auto) Eos % (Auto) Baso % (Auto) Neut # (Auto) Lymph # (Auto) [place] # (Auto) Eos # (Auto) Baso # (Auto) Neutrophils % (Manual) Lymphocytes % (Manual) Monocytes % (Manual) Platelet Estimate Plt Clumps, EDTA PT INR APTT Sodium Potassium Chloride Carbon Dioxide Anion Gap BUN Creatinine Est GFR ( Amer) Est GFR (Non-Af Amer) POC Glucose (mg/dL) Random Glucose Calcium Total Bilirubin AST ALT Alkaline Phosphatase Total Protein Albumin Globulin Albumin/Globulin Ratio Lipase Urine Color Yellow Urine Clarity Clear Urine pH 5.0 Ur Specific [place] 1.016 Urine Protein 2+ H Urine Glucose (UA) 2+ H Urine Ketones Negative Urine Blood Negative Urine Nitrate Negative Urine Bilirubin Negative Urine Urobilinogen Normal Ur Leukocyte Esterase Neg Urine WBC (Auto) 1 Urine RBC (Auto) < 1 Urine Bacteria Rare Urine Sperm (Auto) Rare H Ur Random Creatinine Ur Random Sodium Stool Occult Blood Hep Bs Antigen Hep Bs Antibody Hep B Core IgM Ab Hepatitis C Antibody HIV 1&2 Antibody Screen Blood Type Antibody Screen Attending/Attestation - Attestation I have personally seen and examined this patient.: Yes I have fully participated in the care of the patient.: Yes I have reviewed all pertinent clinical information: Yes Notes (Text): Patient seen, examined and case discussed with medical pathology teacher. Patient seen in the emergency room with at bedside; patient is primarily spanish speaking; is assisting in translation. Patient has vomitting up clots of blood over 1 night with associated diarrhea, while in the bathroom. has picture of the vomittus. Patient has been taking aspirin and plavix for stroke prevention; he has cerebral aneurysm more than 20 years ago which was clipped, seizure disorder which he is on lamictal, diabetes which he usually takes lantus 20 units SUBQ12 with humalog sliding scale. Patient did take his Lantus overnight prior to coming to the hospital. GI consulted on the case-->patient went to endoscopy today and scheduled for colonoscopy tomorrow. nephrology consulted on the case-->patient has known hx of ckd, with worsen Cr unclear if due to bleeding or not. Patient was type and crossed with blood transfusion consent, risks and benefits discussed with resident with patient and to allow for blood if needed. Patient started on Cipro and Flagyl for diarrhea, enteritis; stool studies collected on admission. Patient/patient's reports he is not allergic to penicillin but this is unclear. Patient has a history of CVA with left side residual weakness; we will hold aspirin and plavix given concern for GI bleed, and monitor him on telemetry. Patient is full assist, is needed at bedside given he has aggressive moments likely secondary to his strokes. Hospitalist service covering Dr. Hagen who is away; he will resume care for his private patient tomorro 10/14/18. Assessment/Plan GI bleed Assessment/Plan H/H on admission was 13.3/38.9 BUN/Cr on admission 37/2.6 NPO GI, Dr. Ellis consulted. Plan for EGD today with Dr. Ellis. Pt received Reglan 10 mg IVP before procedure per recs by Dr. Ellis and colonoscopy scheduled for tomorrow Repeat CBC, CMP pending If drop, will transfuse 1 unit of PRBC overnight night in ED, patient received Protonix bolus, continue protonix drip Received 80 mg IVP of protonix. Continue IV protonix 8mg/hr Type and Cross obtained, consent in chart Aspiration precautions Hold home Aspirin and plavix Colitis * Ct on admission showed non-specific colitis * GI consulted * Started on Cipro 400 mg IV Q12; adjusted to renal dose suggested by nephrology and Flagyl 500 mg IV q8H * Stool culture, ova/parasite, giardia, stool occult ordered Bladder wall thickening * UA, urine culture and PSA ordered Hyperkalemia * slightly hemolyzed sample, EKG does not show change consistent with hyperkalemia, patient does not report chest pain * monitor repeat CMP Hx of CVA * Hold Aspirin and plavix * Will continue statin therapy once patient is eating * PT/OT * Echo ordered IDDM * Hgb A1c in 06/2018 9.8 * Lantus 20 units [id number] is patient's home dose; he took his evening dose prior to coming to hospital * Will start lantus 10 units subq12 given GI procedures * Check accuchecks q6H * Hypoglycemic protocol Acute on chronic kidney disease * BUN/Cr on admission 37/2.6 * Baseline Cr is 2.2 * Continue NS at 50 cc/hr * NephroDr. Pereira consulted HTN * hold antihypertensives given GI bleed workup HLD * Hold oral medications given GI bleed workup * Will continue statin therapy once patient is eating Seizure disorder * will hold home lamictal for now * Seizure precautions and q4 neurochecks Prophylaxis * SCDs. Chemical ppx contraindicated due to possible GI bleed * Protonix * NPO * PT/OT eval
[2018-10-13] MEDS ORDERED: Sodium Chloride 0.9% 1,000 ML IV SCH ×2 (11:45→16:03)
[2018-10-13] MEDS ORDERED: Metoprolol 1 mg/ml Inj IVP PRN (11:46)
[2018-10-13] MEDS ORDERED: Propofol 10 mg/ml Inj (20 ML) ONE (11:58)
[2018-10-13] MEDS: (Lantus) Insulin Glargine, Recombinant SC SCH ×2 (12:00→22:11)
[2018-10-13] MEDS ORDERED: Ciprofloxacin 400mg/200ml D5W 400 MG/200 ML BAG IVPB SCH (12:00)
[2018-10-13] MEDS ORDERED: Peg-Electrolyte Oral Soln 4L (Golytely) PO ONE (13:00)
[2018-10-13] MEDS: metroNIDAZOLE IV 500 mg/100 ml 500 MG/100 ML BAG IVPB SCH ×2 (16:06→20:35)
--- NOTE | 2018-10-13 16:38 | CP.PCM.CON ---
History of Present Illness - History of Present Illness History of Present Illness: Nephrology Consultation Note: Assessment: Stable Acute Kidney Injury (N17.9) likely due to pre-renal Diabetic chronic Kidney Disease (E11.22), Hypertensive Chronic Kidney Disease (I12.9) Chronic Kidney Disease (N18.3) Stage 3 with ? mg proteinuria (R80.9) likely due to DM/HTN mild hyperkalemia and metabolic acidosis CVA, cerebral aneurysm s/p cliping, hyperlipidemia enterocolitis Plan No acute need for renal replacement therapy at this time. Hypertension control with meds as ordered. Maintain hemodynamics stable. Avoid hypotension. Patient not on ACEI/ARB due to recent WILLIAM and hyperkalemia. resume norvasc. Monitor Input/Output, daily weights and renal function with basic metabolic panel continue with IVF resume sodium bicarb 650 bid please dose cipro for reduced eGFR Check urine analysis, spot protein/creatinine, albumin/creatinine ratio Check HIV/Hep B and Hep C serology Check for 25-OH vitamin D, iPTH, phosphorus level. Dose meds/antibiotics for reduced GFR. Avoid fleets enema/magnesium based laxatives. Avoid nephrotoxins/NSAIDs/ iodinated contrast (unless needed emergently) Glycemic control Further work up/management as per primary team Thanks for allowing me to participate in care of your patient. Will follow patient with you. Please call if any Qs Dr Maxime Pereira Office: [phone] Chief Complaint; vomiting Reason for consult: Acute Kidney Injury, CKD 3 HPI: Pt is a 58 M with hx of diabetes Mellitus (25 years), hypertension (years) CVA, cerebral aneurysm s/p cliping, hyperlipidemia, CKD 3 with baseline cr 2-2.3 presented with complaints of vomitting and loose stool. renal consult for WILLIAM on CKD 3 Denies OTC/herbal meds or NSAIDs No recent iodinated contrast exposure. No obvious episodes of low BP. pt feels better now. aware about kidney disease. ROS: Cardiovascular: No chest pain. Pulmonary: No shortness of breath Gastrointestinal: denies abdominal pain No further nausea/vomiting. Genitourinary: No pain while urinating. Denies blood in urine. All other negative except as mentioned in HPI Physical Examination: bedside General Appearance: Comfortable, in no acute respiratory distress, co-operative . Vitals reviewed and noted as below Head; Atraumatic, normocephalic ENT: no ulcers no thrush. Tongue is midline. Oropharynx: no rash or ulcers. EYES: Pupils are equal, round and reactive to light accommodation. Eye muscles and extraocular movement intact. Sclera is anicteric. Neck; supple no lymphadenopathy, no thyromegaly or bruit Lungs: Normal respiratory rate/effort. Breath sounds bilateral equal and clear Heart: Normal rate. s1s2 normal. No rub or gallop. Extremities: no edema. No varicose veins Neurological: Patient is alert, awake and oriented to person, place and time. Skin: Warm and dry. Normal turgor. No rash. Palpitation: Normal elasticity for age Abdomen: Abdomen is soft. Bowel sounds +. There is no abdominal tenderness, no guarding/rigidity no organomegaly Psych: limited insight and normal affect/mood MSK: no joint tenderness or swelling. Digits and nails normal, no deformity : kidney or bladder not palpable Labs/imaging reviewed. Past medical history, past surgical history, family history, social history, allergy reviewed and noted as below Family hx: no hx of CKD. Rest non-contributory UA 3+ protein in past renal imaging : 2 x 2 cm lesion Lower pole Rt kidney Past Patient History - Infectious Disease Hx of Infectious Diseases: None - Tetanus Immunizations Tetanus Immunization: Unknown - Past Medical History & Family History Past Medical History?: Yes - Past Social History Smoking Status: Former Smoker Alcohol: None Drugs: Denies Home Situation {Lives}: With Family - CARDIAC Hx Hypercholesterolemia: Yes Hx Hypertension: Yes - PULMONARY Hx Bronchitis: Yes Hx Chronic Obstructive Pulmonary Disease (COPD): Yes Hx Emphysema: Yes Hx Sleep Apnea: Yes - NEUROLOGICAL Hx Dementia: Yes (Vascular dementia) Hx Seizures: Yes (seizure disorder) Hx Transient Ischemic Attacks (TIA): No - HEENT Hx HEENT Problems: No - RENAL Hx Chronic Kidney Disease: Yes - ENDOCRINE/METABOLIC Hx Hypothyroidism: No - HEMATOLOGICAL/ONCOLOGICAL Hx Human Immunodeficiency Virus (HIV): No Hx Sickle Cell Disease: No - INTEGUMENTARY Hx Dermatological Problems: No - MUSCULOSKELETAL/RHEUMATOLOGICAL Hx Fractures: Yes (Hx rib fractures) - GASTROINTESTINAL Hx Gastrointestinal Disorders: No - GENITOURINARY/GYNECOLOGICAL Hx Genitourinary Disorders: Yes Hx Incontinence: Yes - PSYCHIATRIC Hx Substance Use: Yes (ex-substance abuse-heroin) - SURGICAL HISTORY Hx Surgeries: Yes Other/Comment: Brain Aneurysm w/ Clipping. - ANESTHESIA Hx Anesthesia: Yes Hx Anesthesia Reactions: No Hx Malignant Hyperthermia: No Meds Allergies/Adverse Reactions: Allergies Allergy/AdvReac Type Severity Reaction Status Date / Time Penicillins Allergy ITCHING Verified 07/02/18 23:01 - Medications Medications: Current Medications Bisacodyl (Dulcolax) 10 mg PO ONCE ONE Stop: 10/13/18 17:01 Pantoprazole Sodium 80 mg/ (Sodium Chloride) 100 mls @ 10 mls/hr IV .Q10H STA Stop: 10/13/18 19:39 Last Admin: 10/13/18 10:11 Dose: 10 mls/hr Ciprofloxacin (Cipro 400mg/200ml Dsw) 400 mg in 200 mls @ 133 mls/hr IVPB Q12H [facility]; Protocol Metronidazole (Flagyl) 500 mg in 100 mls @ 100 mls/hr IVPB Q8H [facility]; Protocol Last Admin: 10/13/18 16:06 Dose: 100 mls/hr Sodium Chloride (Sodium Chloride 0.9%) 1,000 mls @ 50 mls/hr IV .Q20H [facility] Insulin Glargine (Lantus) 10 unit SC Q12 [facility] Last Admin: 10/13/18 12:00 Dose: Not Given Insulin Human Regular (Novolin R) 0 unit SC ACHS [facility]; Protocol Lamotrigine (Lamictal) 50 mg PO BID [facility] Metoclopramide HCl (Reglan) 5 mg IVP Q6H [facility] Stop: 10/15/18 08:00 Last Admin: 10/13/18 14:07 Dose: 5 mg Metoprolol Tartrate (Lopressor) 5 mg IVP DAILY PRN PRN Reason: FOR SYSTOLIC BP>160 Nystatin (Nystop Topical Powder) 1 applic TOP TID [facility] Pneumococcal Polyvalent Vaccine (Pneumovax 23 Vaccine) 0.5 ml SC .ONCE ONE Stop: 10/14/18 10:01 Results - Vital Signs Recent Vital Signs: Last Vital Signs Temp 97.7 F 10/13/18 15:00 Pulse 70 10/13/18 15:00 Resp 18 10/13/18 15:00 BP 153/75 H 10/13/18 15:00 Pulse Ox 99 10/13/18 15:00 - Labs Result Diagrams: 10/13/18 05:07 10/13/18 05:07 Labs: Laboratory Results - last 24 hr 10/13/18 10/13/18 10/13/18 04:18 05:07 05:07 WBC 12.0 H D RBC 4.84 Hgb 13.3 Hct 38.9 MCV 80.3 MCH 27.4 MCHC 34.1 RDW 14.7 H Plt Count 153 MPV 8.6 Neut % (Auto) 86.8 H Lymph % (Auto) 9.2 L Schleicher % (Auto) 2.5 Eos % (Auto) 0.7 Baso % (Auto) 0.8 Neut # (Auto) 10.4 H Lymph # (Auto) 1.1 Schleicher # (Auto) 0.3 Eos # (Auto) 0.1 Baso # (Auto) 0.1 Neutrophils % (Manual) 87 H Lymphocytes % (Manual) 10 L Monocytes % (Manual) 3 Platelet Estimate Normal Plt Clumps, EDTA Present PT INR APTT Sodium 134 Potassium 5.6 H Chloride 105 Carbon Dioxide 19 L Anion Gap 15 BUN 37 H Creatinine 2.6 H Est GFR ( Amer) 31 Est GFR (Non-Af Amer) 25 POC Glucose (mg/dL) 258 H Random Glucose 264 H D Calcium 9.0 Total Bilirubin 0.7 AST 37 ALT 16 L D Alkaline Phosphatase 67 Total Protein 7.0 Albumin 3.7 Globulin 3.2 Albumin/Globulin Ratio 1.1 Lipase 241 Blood Type Antibody Screen 10/13/18 10/13/18 06:30 06:30 WBC RBC Hgb Hct MCV MCH MCHC RDW Plt Count MPV Neut % (Auto) Lymph % (Auto) Schleicher % (Auto) Eos % (Auto) Baso % (Auto) Neut # (Auto) Lymph # (Auto) Schleicher # (Auto) Eos # (Auto) Baso # (Auto) Neutrophils % (Manual) Lymphocytes % (Manual) Monocytes % (Manual) Platelet Estimate Plt Clumps, EDTA PT 11.8 INR 1.1 APTT 28 Sodium Potassium Chloride Carbon Dioxide Anion Gap BUN Creatinine Est GFR ( Amer) Est GFR (Non-Af Amer) POC Glucose (mg/dL) Random Glucose Calcium Total Bilirubin AST ALT Alkaline Phosphatase Total Protein Albumin Globulin Albumin/Globulin Ratio Lipase Blood Type AB POSITIVE Antibody Screen Negative
[2018-10-13] MEDS ORDERED: Bisacodyl 5mg EC Tab PO ONE (17:00)
[2018-10-13 17:29] LABS: MEAN CORPUSCULAR HEMOGLOBIN 26.3 pg (27.0-31.0); MEAN CORPUSCULAR HGB CONC 32.9 g/dL (33.0-37.0); MEAN PLATELET VOLUME 7.5 fL (7.2-11.7); RBC 4.01 Mil/uL (4.40-5.90); RED CELL DISTRIBUTION WIDTH 14.1 % (11.5-14.5); WHITE BLOOD COUNT 8.4 K/uL (4.8-10.8)
[2018-10-13] MEDS: (Novolin R) Insulin Human Regular 100 units/ml vial SC SCH ×2 (17:45→21:42)
[2018-10-13] MEDS: Ciprofloxacin 200mg/100ml D5W 100 ML IVPB SCH (17:47)
[2018-10-13 17:48] LABS: HEMOGLOBIN 10.6 g/dL (12.0-18.0)
[2018-10-13 18:13] LABS: HEPATITIS B SURFACE AG Negative (NEGATIVE)
[2018-10-13 18:18] LABS: HEPATITIS B CORE AB NEGATIVE (NEGATIVE)
[2018-10-13 18:31] LABS: HEPATITIS C ANTIBODY NEGATIVE (NEGATIVE)
[2018-10-13 19:12] LABS: SPERM URINE RARE /hpf; URINE BACTERIA RARE (<OCC); URINE BILIRUBIN NEGATIVE (NEGATIVE); URINE BLOOD NEGATIVE (NEGATIVE); URINE CLARITY Clear (Clear); URINE COLOR Yellow (YELLOW); URINE GLUCOSE (UA) 2+ mg/dL (Normal); URINE LEUKOCYTE ESTERASE NEG Leu/uL (Negative); URINE PROTEIN 2+ mg/dL (NEGATIVE); URINE UROBILINOGEN NORMAL mg/dL (0.2-1.0)
[2018-10-13 19:23] LABS: CREATININE, RANDOM URINE 92.8 mg/dL
[2018-10-13 22:01] LABS: IRON 33 ug/dL (49-181)
[2018-10-13 22:10] LABS: % IRON SATURATION 13 (20-55); TOTAL IRON BINDING CAPACITY 261 ug/dL (250-450)
[2018-10-13 22:39] LABS: FERRITIN 54.6 ng/mL
[2018-10-14] MEDS: metroNIDAZOLE IV 500 mg/100 ml 500 MG/100 ML BAG IVPB SCH ×3 (04:00→20:55)
[2018-10-14] MEDS: Ciprofloxacin 200mg/100ml D5W 100 ML IVPB SCH ×2 (05:24→17:15)
[2018-10-14 08:03] LABS: CALCIUM 8.7 mg/dl (8.6-10.4)
[2018-10-14] MEDS: (Novolin R) Insulin Human Regular 100 units/ml vial SC SCH ×4 (08:40→21:22)
[2018-10-14] MEDS: Lactobacillus Acidophilus 500 MU Cap PO SCH ×2 (09:11→17:17)
[2018-10-14] MEDS: (Lantus) Insulin Glargine, Recombinant SC SCH ×2 (09:11→21:21)
[2018-10-14] MEDS ORDERED: Pneumococcal 23-Valent Vaccine SC ONE (10:00)
[2018-10-14] MEDS ORDERED: Dextrose 5%/0.45% NS 1,000 ML IV SCH (11:00)
[2018-10-14 11:29] LABS: BASO # 0.1 K/uL (0.0-0.2); BASO % 0.8 % (0.0-2.0); EOS # 0.2 K/uL (0.0-0.7); EOS % 2.4 % (0.0-4.0); LYMPH # 1.5 K/uL (1.0-4.3); LYMPH % 18.1 % (20.0-40.0); MEAN CELL VOLUME 80.4 fL (80.0-94.0); MEAN CORPUSCULAR HEMOGLOBIN 27.2 pg (27.0-31.0); MEAN CORPUSCULAR HGB CONC 33.8 g/dL (33.0-37.0); MEAN PLATELET VOLUME 7.7 fL (7.2-11.7); MONO # 0.5 K/uL (0.0-0.8); MONO % 5.3 % (0.0-10.0); NEUT # 6.3 K/uL (1.8-7.0); NEUT % 73.4 % (50.0-75.0); NRBC % 0.1 % (0.0-2.0); RBC 4.72 Mil/uL (4.40-5.90); RED CELL DISTRIBUTION WIDTH 14.6 % (11.5-14.5); WHITE BLOOD COUNT 8.5 K/uL (4.8-10.8)
[2018-10-14 11:41] LABS: HEMOGLOBIN 12.8 g/dL (12.0-18.0)
[2018-10-14] MEDS ORDERED: Propofol 10 mg/ml Inj (20 ML) ONE (12:08)
[2018-10-14] MEDS ORDERED: Midazolam 2 MG/2 ML VIAL ONE (12:09)
[2018-10-14] MEDS ORDERED: Ergocalciferol 50,000 Intl Units Cap PO SCH (13:00)
--- NOTE | 2018-10-14 14:11 | CP.PCM.PN ---
Subjective - Date & Time of Evaluation Date of Evaluation: 10/14/18 Time of Evaluation: 14:08 - Subjective Subjective: Nephrology Consultation Note: Assessment: Stable Acute Kidney Injury (N17.9) likely due to pre-renal Diabetic chronic Kidney Disease (E11.22), Hypertensive Chronic Kidney Disease (I12.9) Chronic Kidney Disease (N18.3) Stage 3 with ? mg proteinuria (R80.9) likely due to DM/HTN mild hyperkalemia and metabolic acidosis CVA, cerebral aneurysm s/p cliping, hyperlipidemia enterocolitis Plan No acute need for renal replacement therapy at this time. Hypertension control with meds as ordered. Maintain hemodynamics stable. Avoid hypotension. resume norvasc, bisoprolol and losartan Monitor Input/Output, daily weights and renal function with basic metabolic panel can discontinue with IVF once able to take orally resume sodium bicarb 650 bid please dose cipro for reduced eGFR weekly vit D added Check urine analysis, spot protein/creatinine, albumin/creatinine ratio Check HIV/Hep B and Hep C serology Check for 25-OH vitamin D, iPTH, phosphorus level. Dose meds/antibiotics for reduced GFR. Avoid fleets enema/magnesium based laxa tives. Avoid nephrotoxins/NSAIDs/ iodinated contrast (unless needed emergently) Glycemic control Further work up/management as per primary team Thanks for allowing me to participate in care of your patient. Will follow patient with you. Please call if any Qs. had d/w team and Maxime Kelli Office: [phone] Chief Complaint; vomiting Reason for consult: Acute Kidney Injury, CKD 3 HPI: Pt is a 58 M with hx of diabetes Mellitus (25 years), hypertension (years) CVA, cerebral aneurysm s/p cliping, hyperlipidemia, CKD 3 with baseline cr 2-2.3 presented with complaints of vomitting and loose stool. renal consult for WILLIAM on CKD 3 Denies OTC/herbal meds or NSAIDs No recent iodinated contrast exposure. No obvious episodes of low BP. pt feels better now. aware about kidney disease. ROS: Cardiovascular: No chest pain. Pulmonary: No shortness of breath Gastrointestinal: denies abdominal pain No further nausea/vomiting. Genitourinary: No pain while urinating. Denies blood in urine. All other negative except as mentioned in HPI Physical Examination: bedside General Appearance: Comfortable, in no acute respiratory distress, co-operative . Vitals reviewed and noted as below Head; Atraumatic, normocephalic ENT: no ulcers no thrush. Tongue is midline. Oropharynx: no rash or ulcers. EYES: Pupils are equal, round and reactive to light accommodation. Eye muscles and extraocular movement intact. Sclera is anicteric. Neck; supple no lymphadenopathy, no thyromegaly or bruit Lungs: Normal respiratory rate/effort. Breath sounds bilateral equal and clear Heart: Normal rate. s1s2 normal. No rub or gallop. Extremities: no edema. No varicose veins Neurological: Patient is seen in recovery room s/p colonoscopy. sleepy Skin: Warm and dry. Normal turgor. No rash. Palpitation: Normal elasticity for age Abdomen: Abdomen is soft. Bowel sounds +. There is no abdominal tenderness, no guarding/rigidity no organomegaly Psych: limited insight and normal affect/mood MSK: no joint tenderness or swelling. Digits and nails normal, no deformity : kidney or bladder not palpable Labs/imaging reviewed. Past medical history, past surgical history, family history, social history, allergy reviewed and noted as below Family hx: no hx of CKD. Rest non-contributory UA 3+ protein in past renal imaging : 2 x 2 cm lesion Lower pole Rt kidney Objective - Vital Signs/Intake and Output Vital Signs (last 24 hours): Temp Pulse Resp BP Pulse Ox 97.5 F L 72 15 172/81 H 99 10/14/18 12:21 10/14/18 12:51 10/14/18 12:51 10/14/18 12:51 10/14/18 12:51 Intake and Output: 10/14/18 10/14/18 06:59 18:59 Intake Total 325 100 Output Total 330 Balance -5 100 - Medications Medications: Current Medications Amlodipine Besylate (Norvasc) 10 mg PO QPM [facility] Last Admin: 10/13/18 17:44 Dose: 10 mg Ergocalciferol (Drisdol 50,000 Intl Units Cap) 1 cap PO Q7D [facility] Last Admin: 10/14/18 13:54 Dose: 1 cap Metronidazole (Flagyl) 500 mg in 100 mls @ 100 mls/hr IVPB Q8H [facility]; Protocol Last Admin: 10/14/18 11:41 Dose: 100 mls/hr Ciprofloxacin (Cipro 200mg/100ml D5w) 100 mls @ 133 mls/hr IVPB Q12H [facility]; Protocol Last Admin: 10/14/18 05:24 Dose: 133 mls/hr Dextrose/Sodium Chloride (Dextrose 5%/0.45% Ns 1000 Ml) 1,000 mls @ 100 mls/hr IV .Q10H [facility] Last Admin: 10/14/18 11:02 Dose: 100 mls/hr Insulin Glargine (Lantus) 10 unit SC Q12 [facility] Last Admin: 10/14/18 09:11 Dose: Not Given Insulin Human Regular (Novolin R) 0 unit SC ACHS [facility]; Protocol Last Admin: 10/14/18 11:36 Dose: Not Given Lactobacillus Acidophilus (Lactobacillus) 1 cap PO BID [facility] Last Admin: 10/14/18 09:11 Dose: Not Given Lamotrigine (Lamictal) 50 mg PO BID [facility] Last Admin: 10/14/18 13:58 Dose: 50 mg Losartan Potassium (Cozaar) 50 mg PO DAILY [facility] Last Admin: 10/14/18 13:54 Dose: 50 mg Metoclopramide HCl (Reglan) 5 mg IVP Q6H [facility] Stop: 10/15/18 08:00 Last Admin: 10/14/18 13:55 Dose: 5 mg Nystatin (Nystop Topical Powder) 1 applic TOP TID [facility] Last Admin: 10/14/18 10:46 Dose: 1 applic Sodium Bicarbonate (Sodium Bicarbonate Tab) 650 mg PO BID [facility] Last Admin: 10/14/18 09:12 Dose: Not Given - Labs Labs: 10/14/18 11:23 10/14/18 07:18 PT 11.8 SECONDS (9.7-12.2) 10/13/18 06:30 INR 1.1 10/13/18 06:30 APTT 28 SECONDS (21-34) 10/13/18 06:30
--- NOTE | 2018-10-14 23:44 | CARD ---
APPROVED REPORT Date of service: 10/14/2018 EXAM: Two-dimensional and M-mode echocardiogram with Doppler and color Doppler. Other Information Quality : TDSRhythm : INDICATION CVA/TIA Congestive Heart Failure COPD RISK FACTORS Hypertension Hyperlipidemia Diabetes 2D DIMENSIONS IVSd1.1 (0.7-1.1cm)LVDd4.0 (3.9-5.9cm) PWd1.0 (0.7-1.1cm)LA Xeagsx29 (18-58mL) LVDs2.6 (2.5-4.0cm)FS (%) 35.5 % LVEF (%)65.5 (>50%)LVEF (Terrazas's)63.96 % M-Mode DIMENSIONS Left Atrium (MM)3.52 (2.5-4.0cm)IVSd0.88 (0.7-1.1cm) Aortic Root3.65 (2.2-3.7cm)LVDd4.46 (4.0-5.6cm) Aortic Cusp Exc.2.30 (1.5-2.0cm)PWd0.77 (0.7-1.1cm) FS (%) 47 %LVDs2.37 (2.0-3.8cm) LVEF (%)70 (>50%) Mitral Valve MV E Launeeij99.2cm/sMV A Wikpttdn15.4cm/sE/A ratio1.0 TDI Lateral E' Peak V8.03cm/sMedial E' Peak V4.35cm/sE/Lateral E'10.2 E/Medial E'18.9 Tricuspid Valve TR Peak Pkrdxusr204tq/sTR Peak Gr.[id number] LEFT VENTRICLE The left ventricle is normal size. There is mildly increased left ventricular wall thickness. The left ventricular function is normal. The left ventricular ejection fraction is within the normal range. 64% No regional wall motion abnormalities noted. The left ventricular diastolic function is indeterminate No left ventricle thrombus noted on this study. There is no ventricular septal defect visualized. There is no left ventricular aneurysm. There is no mass noted in the left ventricle. RIGHT VENTRICLE The right ventricle is normal size. There is normal right ventricular wall thickness. The right ventricular systolic function is normal. ATRIA The left atrial volume index is mildly increased. The right atrium size is normal. The interatrial septum is intact with no evidence for an atrial septal defect. AORTIC VALVE The aortic valve is normal in structure and function. No aortic regurgitation is present. There is no aortic valvular stenosis. There is no aortic valvular vegetation. MITRAL VALVE The mitral valve is normal in structure and function. There is no evidence of mitral valve prolapse. There is no mitral valve stenosis. There is trace mitral valve regurgitation noted. TRICUSPID VALVE The tricuspid valve is normal in structure and function. There is no tricuspid valve regurgitation noted. There is no tricuspid valve prolapse or vegetation. There is no tricuspid valve stenosis. PULMONIC VALVE The pulmonary valve is normal in structure and function. There is no pulmonic valvular regurgitation. There is no pulmonic valvular stenosis. GREAT VESSELS The aortic root is normal in size. The ascending aorta is normal in size. The pulmonary artery is normal. The IVC is normal in size and collapses >50% with inspiration. PERICARDIAL EFFUSION The pericardium appears normal. There is no pleural effusion. <Conclusion> The left ventricular function is normal. There is mildly increased left ventricular wall thickness. The left atrial volume index is mildly increased. Normal Doppler.
--- NOTE | 2018-10-15 00:06 | CARD ---
APPROVED REPORT Date of service: 10/13/2018 EKG Measurement Heart [id number] [place] 198P [id number] <Conclusion> Normal sinus rhythm Left axis deviation Cannot rule out Anterior infarct, age undetermined Abnormal ECG
[2018-10-15] MEDS: metroNIDAZOLE IV 500 mg/100 ml 500 MG/100 ML BAG IVPB SCH ×3 (03:31→19:43)
--- NOTE | 2018-10-15 03:35 | PN ---
DATE: 10/14/2018 DAILY PROGRESS NOTE SUBJECTIVE: The patient is seen today, 10/14/2018. He is status post EGD and colonoscopy. Hemoglobin dropped from 13 to 10. The patient is status post transfusion of 1 unit of packed RBCs. PHYSICAL EXAMINATION: VITAL SIGNS: Blood pressure is 176/88, temperature 97.9, respiratory rate 20 and pulse 71. HEENT: Pupils are equal and reactive to light. Normal-appearing mucosa of the conjunctivae, oropharynx and nasal membrane mucosa. NECK: Supple. No JVD. No carotid bruit. No lymph node. No thyromegaly. CHEST AND LUNGS: Bilateral symmetrical expansion. Good air exchange. No rales. No rhonchi. CARDIOVASCULAR SYSTEM: PMI not localized. S1 and S2. No additional sounds. ABDOMEN: Normoactive bowel sounds. No tenderness. No organomegaly. No masses. EXTREMITIES: No cyanosis, no clubbing, no edema. CENTRAL NERVOUS SYSTEM: Alert, awake, oriented x2. The patient moves all his extremities equally. ASSESSMENT: 1. Possible upper gastrointestinal bleeding. 2. Anemia of acute blood loss. 3. Status post esophagogastroduodenoscopy and colonoscopy that showed gastritis and internal hemorrhoids. 4. History of cerebrovascular accident. 5. Hypertension. 6. Type 2 diabetes mellitus. PLAN: Continue current proton pump inhibitors and current medications and to resume aspirin and Plavix and repeat CBC in the morning. Discussed with the patient's at the bedside. Keysha Hagen MD
[2018-10-15] MEDS: Ciprofloxacin 200mg/100ml D5W 100 ML IVPB SCH ×2 (05:16→17:27)
[2018-10-15 08:32] LABS: BASO # 0.1 K/uL (0.0-0.2); BASO % 0.8 % (0.0-2.0); EOS # 0.2 K/uL (0.0-0.7); EOS % 1.8 % (0.0-4.0); HEMOGLOBIN 12.8 g/dL (12.0-18.0); LYMPH # 1.4 K/uL (1.0-4.3); LYMPH % 16.5 % (20.0-40.0); MEAN CELL VOLUME 80.8 fL (80.0-94.0); MEAN CORPUSCULAR HEMOGLOBIN 27.8 pg (27.0-31.0); MEAN CORPUSCULAR HGB CONC 34.4 g/dL (33.0-37.0); MEAN PLATELET VOLUME 7.8 fL (7.2-11.7); MONO # 0.5 K/uL (0.0-0.8); NEUT # 6.1 K/uL (1.8-7.0); NEUT % 74.9 % (50.0-75.0); NRBC % 0.1 % (0.0-2.0); RBC 4.6 Mil/uL (4.40-5.90); RED CELL DISTRIBUTION WIDTH 14.5 % (11.5-14.5); WHITE BLOOD COUNT 8.2 K/uL (4.8-10.8)
[2018-10-15] MEDS: (Novolin R) Insulin Human Regular 100 units/ml vial SC SCH ×4 (08:38→21:41)
[2018-10-15 08:47] LABS: CALCIUM 8.9 mg/dl (8.6-10.4)
[2018-10-15] MEDS: Lactobacillus Acidophilus 500 MU Cap PO SCH ×2 (10:25→17:28)
[2018-10-15] MEDS: (Lantus) Insulin Glargine, Recombinant SC SCH ×2 (10:25→21:41)
--- NOTE | 2018-10-15 13:21 | RAD ---
HISTORY: SOB COMPARISON: Chest x-ray performed 06/29/18 TECHNIQUE: Chest, one view. FINDINGS: Examination limited by habitus. LUNGS: Subtle infiltrate left upper lobe. Please note that chest x-ray has limited sensitivity for the detection of pulmonary masses. PLEURA: No significant pleural effusion identified. No definite pneumothorax . CARDIOVASCULAR: Mild cardiomegaly. Atherosclerotic calcifications present. OSSEOUS STRUCTURES: Degenerative changes. VISUALIZED UPPER ABDOMEN: Unremarkable. OTHER FINDINGS: None. IMPRESSION: Subtle infiltrate left upper lobe. Mild cardiomegaly. Atherosclerotic calcifications present.
--- NOTE | 2018-10-15 13:44 | CP.PCM.PN ---
Subjective - Date & Time of Evaluation Date of Evaluation: 10/15/18 Time of Evaluation: 13:42 - Subjective Subjective: Nephrology Consultation Note: Assessment: Stable Acute Kidney Injury (N17.9) likely due to pre-renal Diabetic chronic Kidney Disease (E11.22), Hypertensive Chronic Kidney Disease (I12.9) Chronic Kidney Disease (N18.3) Stage 3 with 8 gram nephrotic proteinuria (R80.9) likely due to DM/HTN mild hyperkalemia and metabolic acidosis CVA, cerebral aneurysm s/p cliping, hyperlipidemia enterocolitis Plan No acute need for renal replacement therapy at this time. Hypertension control with meds as ordered. Maintain hemodynamics stable. Avoid hypotension. resume norvasc, bisoprolol and losartan increased to 100. added chlorthalidone 25 mg/d and prn hydralazine Monitor Input/Output, daily weights and renal function with basic metabolic panel resume sodium bicarb 650 bid please dose cipro for reduced eGFR weekly vit D added check renal sono for Rt renal lesion seen on CT. may consider urology eval as well Check urine analysis, spot protein/creatinine, albumin/creatinine ratio Check HIV/Hep B and Hep C serology Check for 25-OH vitamin D, iPTH, phosphorus level. Dose meds/antibiotics for reduced GFR. Avoid fleets enema/magnesium based laxatives. Avoid nephrotoxins/NSAIDs/ iodinated contrast (unless needed emergently) Glycemic control Further work up/management as per primary team Thanks for allowing me to participate in care of your patient. Will follow patient with you. Please call if any Qs. had d/w team and Dr Maxime Pereira Office: [phone] Chief Complaint; vomiting Reason for consult: Acute Kidney Injury, CKD 3 HPI: Pt is a 58 M with hx of diabetes Mellitus (25 years), hypertension (years) CVA, cerebral aneurysm s/p cliping, hyperlipidemia, CKD 3 with baseline cr 2-2.3 presented with complaints of vomitting and loose stool. renal consult for WILLIAM on CKD 3 Denies OTC/herbal meds or NSAIDs No recent iodinated contrast exposure. No obvious episodes of low BP. pt feels better now. aware about kidney disease. ROS: Cardiovascular: No chest pain. Pulmonary: No shortness of breath Gastrointestinal: denies abdominal pain No further nausea/vomiting. Genitourinary: No pain while urinating. Denies blood in urine. All other negative except as mentioned in HPI Physical Examination: bedside General Appearance: Comfortable, in no acute respiratory distress, co-operative . Vitals reviewed and noted as below Head; Atraumatic, normocephalic ENT: no ulcers no thrush. Tongue is midline. Oropharynx: no rash or ulcers. EYES: Pupils are equal, round and reactive to light accommodation. Eye muscles and extraocular movement intact. Sclera is anicteric. Neck; supple no lymphadenopathy, no thyromegaly or bruit Lungs: Normal respiratory rate/effort. Breath sounds bilateral equal and clear Heart: Normal rate. s1s2 normal. No rub or gallop. Extremities: no edema. No varicose veins Neurological: Patient is seen in recovery room s/p colonoscopy. sleepy Skin: Warm and dry. Normal turgor. No rash. Palpitation: Normal elasticity for age Abdomen: Abdomen is soft. Bowel sounds +. There is no abdominal tenderness, no guarding/rigidity no organomegaly Psych: limited insight and normal affect/mood MSK: no joint tenderness or swelling. Digits and nails normal, no deformity : kidney or bladder not palpable Labs/imaging reviewed. Past medical history, past surgical history, family history, social history, allergy reviewed and noted as below Family hx: no hx of CKD. Rest non-contributory UA 3+ protein in past renal imaging : 2 x 2 cm lesion Lower pole Rt kidney Objective - Vital Signs/Intake and Output Vital Signs (last 24 hours): Temp Pulse Resp BP Pulse Ox 98.0 F 82 20 165/78 H 97 10/15/18 08:13 10/15/18 12:17 10/15/18 08:13 10/15/18 13:39 10/15/18 12:17 Intake and Output: 10/15/18 10/15/18 06:59 18:59 Intake Total 210 Balance 210 - Medications Medications: Current Medications Amlodipine Besylate (Norvasc) 10 mg PO QPM [facility] Last Admin: 10/14/18 17:20 Dose: 10 mg Bisoprolol Fumarate (Zebeta) 5 mg PO DAILY [facility] Last Admin: 10/15/18 10:24 Dose: 5 mg Chlorthalidone (Hygroton) 25 mg PO DAILY [facility] Last Admin: 10/15/18 10:38 Dose: 25 mg Clopidogrel Bisulfate (Plavix) 75 mg PO DAILY [facility] Last Admin: 10/15/18 10:24 Dose: 75 mg Ergocalciferol (Drisdol 50,000 Intl Units Cap) 1 cap PO Q7D [facility] Last Admin: 10/14/18 13:54 Dose: 1 cap Escitalopram Oxalate (Lexapro) 5 mg PO HS [facility] Last Admin: 10/14/18 21:27 Dose: 5 mg Hydralazine HCl (Apresoline) 25 mg PO Q4 PRN PRN Reason: Other SEE INSTRUCTIONS Last Admin: 10/15/18 08:38 Dose: 25 mg Metronidazole (Flagyl) 500 mg in 100 mls @ 100 mls/hr IVPB Q8H [facility]; Protocol Last Admin: 10/15/18 13:39 Dose: 100 mls/hr Ciprofloxacin (Cipro 200mg/100ml D5w) 100 mls @ 133 mls/hr IVPB Q12H [facility]; Protocol Last Admin: 10/15/18 05:16 Dose: 133 mls/hr Insulin Glargine (Lantus) 10 unit SC Q12 [facility] Last Admin: 10/15/18 10:25 Dose: 10 unit Insulin Human Regular (Novolin R) 0 unit SC ACHS [facility]; Protocol Last Admin: 10/15/18 13:36 Dose: 3 unit Lactobacillus Acidophilus (Lactobacillus) 1 cap PO BID [facility] Last Admin: 10/15/18 10:25 Dose: 1 cap Lamotrigine (Lamictal) 50 mg PO BID [facility] Last Admin: 10/15/18 10:24 Dose: 50 mg Losartan Potassium (Cozaar) 100 mg PO DAILY [facility] Last Admin: 10/15/18 10:24 Dose: 100 mg Memantine (Namenda) 5 mg PO HS [facility] Last Admin: 10/14/18 21:20 Dose: 5 mg Nystatin (Nystop Topical Powder) 1 applic TOP TID [facility] Last Admin: 10/15/18 13:41 Dose: 1 applic Rosuvastatin Calcium (Crestor) 20 mg PO HS [facility] Last Admin: 10/14/18 21:20 Dose: 20 mg Sitagliptin Phosphate (Januvia) 25 mg PO DAILY [facility] Last Admin: 10/15/18 10:24 Dose: 25 mg Sodium Bicarbonate (Sodium Bicarbonate Tab) 650 mg PO BID [facility] Last Admin: 10/15/18 10:24 Dose: 650 mg Tamsulosin HCl (Flomax) 0.4 mg PO HS [facility] Last Admin: 10/14/18 21:20 Dose: 0.4 mg - Labs Labs: 10/15/18 08:19 10/15/18 08:19 PT 11.8 SECONDS (9.7-12.2) 10/13/18 06:30 INR 1.1 10/13/18 06:30 APTT 28 SECONDS (21-34) 10/13/18 06:30
--- NOTE | 2018-10-15 16:47 | US ---
Date of service: 10/15/2018 PROCEDURE: Ultrasound of the Kidneys HISTORY: Lt renal lesion seen on CT COMPARISON: CT abdomen and pelvis without contrast performed 10/13/18 TECHNIQUE: Sonogram of the kidneys. FINDINGS: RIGHT KIDNEY: Measures: 10.8 x 5.3 x 5.0 cm. No obstructing calculus or hydronephrosis identified. LEFT KIDNEY: Measures: 12.5 x 6.0 x 6.0 cm. 2.9 x 2.5 x 2.5 cm heterogeneous solid-appearing lower pole mass without clear evidence of vascularity. No obstructing calculus or hydronephrosis identified. OTHER FINDINGS: None. IMPRESSION: Indeterminate 2.9 x 2.5 x 2.5 cm solid-appearing left lower pole mass without evidence of vascularity.
[2018-10-16] MEDS: metroNIDAZOLE IV 500 mg/100 ml 500 MG/100 ML BAG IVPB SCH ×2 (04:18→12:38)
[2018-10-16] MEDS: Ciprofloxacin 200mg/100ml D5W 100 ML IVPB SCH (05:51)
[2018-10-16 07:29] VITALS: O2SAT 97
[2018-10-16] MEDS: (Novolin R) Insulin Human Regular 100 units/ml vial SC SCH ×2 (08:25→12:36)
[2018-10-16] MEDS: (Lantus) Insulin Glargine, Recombinant SC SCH (09:19)
[2018-10-16] MEDS: Lactobacillus Acidophilus 500 MU Cap PO SCH (09:19)
--- NOTE | 2018-10-16 11:06 | CP.PCM.PN ---
Subjective - Date & Time of Evaluation Date of Evaluation: 10/16/18 Time of Evaluation: 11:04 - Subjective Subjective: Nephrology Consultation Note: Assessment: Stable Acute Kidney Injury (N17.9) likely due to pre-renal Diabetic chronic Kidney Disease (E11.22), Hypertensive Chronic Kidney Disease (I12.9) Chronic Kidney Disease (N18.3) Stage 3 with 8 gram nephrotic proteinuria (R80.9) likely due to DM/HTN mild hyperkalemia and metabolic acidosis CVA, cerebral aneurysm s/p cliping, hyperlipidemia enterocolitis Plan No acute need for renal replacement therapy at this time. Hypertension control with meds as ordered. Maintain hemodynamics stable. Avoid hypotension. resume norvasc, bisoprolol increased to 10 mg/d and losartan increased to 100. added chlorthalidone 25 mg/d and prn hydralazine Monitor Input/Output, daily weights and renal function with basic metabolic panel resume sodium bicarb 650 bid weekly vit D added done renal sono for Rt renal lesion seen on CT. unable to do contrast study (due to his CKD) to further characterize it better. suggest urology eval as outpt. follow with repeat sono 3-6 months Check urine analysis, spot protein/creatinine, albumin/creatinine ratio Check HIV/Hep B and Hep C serology Check for 25-OH vitamin D, iPTH, phosphorus level. Dose meds/antibiotics for reduced GFR. Avoid fleets enema/magnesium based laxatives. Avoid nephrotoxins/NSAIDs/ iodinated contrast (unless needed emergently) Glycemic control Further work up/management as per primary team Thanks for allowing me to participate in care of your patient. Will follow patient with you. Please call if any Qs. had d/w team and Dr Swartz Kelli Office: [phone] Chief Complaint; vomiting Reason for consult: Acute Kidney Injury, CKD 3 HPI: Pt is a 58 M with hx of diabetes Mellitus (25 years), hypertension (years) CVA, cerebral aneurysm s/p cliping, hyperlipidemia, CKD 3 with baseline cr 2-2.3 presented with complaints of vomitting and loose stool. renal consult for WILLIAM on CKD 3 Denies OTC/herbal meds or NSAIDs No recent iodinated contrast exposure. No obvious episodes of low BP. pt feels better now. aware about kidney disease. ROS: Cardiovascular: No chest pain. Pulmonary: No shortness of breath Gastrointestinal: denies abdominal pain No further nausea/vomiting. Genitourinary: No pain while urinating. Denies blood in urine. All other negative except as mentioned in HPI Physical Examination: bedside General Appearance: Comfortable, in no acute respiratory distress, co-operative . Vitals reviewed and noted as below Head; Atraumatic, normocephalic ENT: no ulcers no thrush. Tongue is midline. Oropharynx: no rash or ulcers. EYES: Pupils are equal, round and reactive to light accommodation. Eye muscles and extraocular movement intact. Sclera is anicteric. Neck; supple no lymphadenopathy, no thyromegaly or bruit Lungs: Normal respiratory rate/effort. Breath sounds bilateral equal and clear Heart: Normal rate. s1s2 normal. No rub or gallop. Extremities: no edema. No varicose veins Neurological: Patient is seen in recovery room s/p colonoscopy. sleepy Skin: Warm and dry. Normal turgor. No rash. Palpitation: Normal elasticity for age Abdomen: Abdomen is soft. Bowel sounds +. There is no abdominal tenderness, no guarding/rigidity no organomegaly Psych: limited insight and normal affect/mood MSK: no joint tenderness or swelling. Digits and nails normal, no deformity : kidney or bladder not palpable Labs/imaging reviewed. Past medical history, past surgical history, family history, social history, allergy reviewed and noted as below Family hx: no hx of CKD. Rest non-contributory UA 3+ protein in past renal imaging : 2 x 2 cm lesion Lower pole Lt kidney Objective - Vital Signs/Intake and Output Vital Signs (last 24 hours): Temp Pulse Resp BP Pulse Ox 97.9 F 75 18 163/88 H 97 10/16/18 07:00 10/16/18 07:00 10/16/18 07:00 10/16/18 07:00 10/16/18 07:00 Intake and Output: 10/16/18 10/16/18 06:59 18:59 Intake Total 700 Output Total 2250 Balance -1550 - Medications Medications: Current Medications Amlodipine Besylate (Norvasc) 10 mg PO QPM [facility] Last Admin: 10/15/18 17:28 Dose: 10 mg Bisoprolol Fumarate (Zebeta) 10 mg PO DAILY [facility] Chlorthalidone (Hygroton) 25 mg PO DAILY [facility] Last Admin: 10/16/18 09:19 Dose: 25 mg Clopidogrel Bisulfate (Plavix) 75 mg PO DAILY [facility] Last Admin: 10/16/18 09:18 Dose: 75 mg Ergocalciferol (Drisdol 50,000 Intl Units Cap) 1 cap PO Q7D [facility] Last Admin: 10/14/18 13:54 Dose: 1 cap Escitalopram Oxalate (Lexapro) 5 mg PO HS [facility] Last Admin: 10/15/18 21:40 Dose: 5 mg Hydralazine HCl (Apresoline) 25 mg PO Q4 PRN PRN Reason: Other SEE INSTRUCTIONS Last Admin: 10/15/18 08:38 Dose: 25 mg Metronidazole (Flagyl) 500 mg in 100 mls @ 100 mls/hr IVPB Q8H [facility]; Protocol Last Admin: 10/16/18 04:18 Dose: 100 mls/hr Ciprofloxacin (Cipro 200mg/100ml D5w) 100 mls @ 133 mls/hr IVPB Q12H [facility]; Protocol Last Admin: 10/16/18 05:51 Dose: 133 mls/hr Insulin Glargine (Lantus) 10 unit SC Q12 [facility] Last Admin: 10/16/18 09:19 Dose: 10 unit Insulin Human Regular (Novolin R) 0 unit SC ACHS [facility]; Protocol Last Admin: 10/16/18 08:25 Dose: 2 unit Lactobacillus Acidophilus (Lactobacillus) 1 cap PO BID [facility] Last Admin: 10/16/18 09:19 Dose: 1 cap Lamotrigine (Lamictal) 50 mg PO BID [facility] Last Admin: 10/16/18 09:23 Dose: 50 mg Losartan Potassium (Cozaar) 100 mg PO DAILY [facility] Last Admin: 10/16/18 09:18 Dose: 100 mg Memantine (Namenda) 5 mg PO HS [facility] Last Admin: 10/15/18 21:40 Dose: 5 mg Nystatin (Nystop Topical Powder) 1 applic TOP TID [facility] Last Admin: 10/16/18 09:20 Dose: 1 applic Rosuvastatin Calcium (Crestor) 20 mg PO HS [facility] Last Admin: 10/15/18 21:40 Dose: 20 mg Sitagliptin Phosphate (Januvia) 25 mg PO DAILY [facility] Last Admin: 10/16/18 09:18 Dose: 25 mg Sodium Bicarbonate (Sodium Bicarbonate Tab) 650 mg PO BID [facility] Last Admin: 10/16/18 09:18 Dose: 650 mg Tamsulosin HCl (Flomax) 0.4 mg PO [facility] Last Admin: 10/15/18 21:40 Dose: 0.4 mg - Labs Labs: 10/15/18 08:19 10/15/18 08:19 PT 11.8 SECONDS (9.7-12.2) 10/13/18 06:30 INR 1.1 10/13/18 06:30 APTT 28 SECONDS (21-34) 10/13/18 06:30
--- NOTE | 2018-10-16 11:26 | PN ---
DATE: 10/16/2018 LOCATION: 556, bed A. SUBJECTIVE: This is a 58-year-old male seen and examined early in rounds with the staff in the floor without any significant reported clinical changes, but intermittent period of shortness of breath on and off as per family. No reported active GI bleeding and the patient appeared to be slightly more disoriented on and off. No reported chest pain or palpitation. Most recent lab results showed normal CBC with the latest blood glucose level 340, increased BUN 28, creatinine 2.7 with low CO2 content indicative of mild metabolic acidosis. Most recently done renal ultrasound, official report is seen. The patient also yesterday had a chest x-ray indicative of infiltrate in the left upper lobe with mild cardiomegaly. PHYSICAL EXAMINATION: GENERAL: A 58-year-old male. VITAL SIGNS: Afebrile with pulse of 78, respiratory rate 20-22, blood pressure 160/82. HEENT: Showed pale, dry oral mucous membrane. Nonicteric sclerae. LUNGS: Few scattered crepitation. Decreased air entry at bases. HEART: Positive S1 and S2. ABDOMEN: Soft with mild generalized tenderness. No mass or organomegaly. No rebound tenderness or guarding, but slight abdominal distention. EXTREMITIES: Without significant clubbing, cyanosis or edema. No reported new neurological deficits, sensory or motor. No reported new focal deficits. IMPRESSION: 1. Peptic ulcer disease with medium-sized hiatus hernia as well as left-sided colitis with internal hemorrhoids. Pathology report of the upper endoscopy was negative for Helicobacter pylori. 2. Abnormal renal ultrasound as well as abnormal CAT scan of the abdomen and pelvis. 3. Renal insufficiency. 4. Poorly controlled diabetes mellitus. SUGGESTIONS: 1. Agree with your plan. 2. Abdominal MRI. 3. Further recommendation to follow. Kellee Gutierrez MD
--- NOTE | 2018-10-16 15:06 | CP.PCM.PN ---
Subjective - Date & Time of Evaluation Date of Evaluation: 10/16/18 Time of Evaluation: 15:05 - Subjective Subjective: patient seen and examined at the bedside Objective - Vital Signs/Intake and Output Vital Signs (last 24 hours): Temp Pulse Resp BP Pulse Ox 97.9 F 75 18 163/88 H 97 10/16/18 07:00 10/16/18 07:00 10/16/18 07:00 10/16/18 07:00 10/16/18 07:00 Intake and Output: 10/16/18 10/16/18 06:59 18:59 Intake Total 700 700 Output Total 2250 Balance -1550 700 - Medications Medications: Current Medications Amlodipine Besylate (Norvasc) [address] [facility] Last Admin: 10/15/18 17:28 Dose: 10 mg Bisoprolol Fumarate (Zebeta) 10 mg PO DAILY [facility] Chlorthalidone (Hygroton) [address] [facility] Last Admin: 10/16/18 09:19 Dose: 25 mg Clopidogrel Bisulfate (Plavix) [address] [facility] Last Admin: 10/16/18 09:18 Dose: 75 mg Ergocalciferol (Drisdol 50,000 Intl Units Cap) [address] [facility] Last Admin: 10/14/18 13:54 Dose: 1 cap Escitalopram Oxalate (Lexapro) [address] [facility] Last Admin: 10/15/18 21:40 Dose: 5 mg Hydralazine HCl (Apresoline) 25 mg PO Q4 PRN PRN Reason: Other SEE INSTRUCTIONS Last Admin: 10/15/18 08:38 Dose: 25 mg Metronidazole (Flagyl) 500 mg in 100 mls @ 100 mls/hr IVPB Q8H [facility]; Protocol Last Admin: 10/16/18 12:38 Dose: 100 mls/hr Ciprofloxacin (Cipro 200mg/100ml D5w) 100 mls @ 133 mls/hr IVPB Q12H [facility]; Protocol Last Admin: 10/16/18 05:51 Dose: 133 mls/hr Insulin Glargine (Lantus) 10 unit SC Q12 [facility] Last Admin: 10/16/18 09:19 Dose: 10 unit Insulin Human Regular (Novolin R) 0 unit SC ACHS [facility]; Protocol Last Admin: 10/16/18 12:36 Dose: 4 unit Lactobacillus Acidophilus (Lactobacillus) [address] [facility] Last Admin: 10/16/18 09:19 Dose: 1 cap Lamotrigine (Lamictal) [address] [facility] Last Admin: 10/16/18 09:23 Dose: 50 mg Losartan Potassium (Cozaar) [address] [facility] Last Admin: 10/16/18 09:18 Dose: 100 mg Memantine (Namenda) [address] [facility] Last Admin: 10/15/18 21:40 Dose: 5 mg Nystatin (Nystop Topical Powder) [address] [facility] Last Admin: 10/16/18 13:31 Dose: Not Given Rosuvastatin Calcium (Crestor) [address] [facility] Last Admin: 10/15/18 21:40 Dose: 20 mg Sitagliptin Phosphate (Januvia) [address] [facility] Last Admin: 10/16/18 09:18 Dose: 25 mg Sodium Bicarbonate (Sodium Bicarbonate Tab) [address] [facility] Last Admin: 10/16/18 09:18 Dose: 650 mg Tamsulosin HCl (Flomax) 0.[address] [facility] Last Admin: 10/15/18 21:40 Dose: 0.4 mg - Labs Labs: 10/15/18 08:19 10/15/18 08:19 PT 11.8 SECONDS (9.7-12.2) 10/13/18 06:30 INR 1.1 10/13/18 06:30 APTT 28 SECONDS (21-34) 10/13/18 06:30 Assessment and Plan - Assessment and Plan (Free Text) Assessment: FOLLOW UP WITH DR CONRAD IN HIS OFFICE -----CALL FOR APPOINTMENT FOLLOW UP WITH DR GOMES IN HIS OFFICE FOLLOW UP WITH DR MCINTYRE IN HIS OFFICE -----CALL FOR APPOINTMENT ADDRESS YOUR RENAL MASS ISSUE AT YOUR VISIT [facility] MEDICATION NEW PRESCRIPTION GIVEN LEVAQUIN 500 MG PO DAILY FLAGYL 250 MG PO Q8H FOR 5 DAYS FLORASTOR 250 MG PO TID FOR 5 DAYS AMLODIPINE HAS BEEN INCREASE TO 10 MG PO AT NIGHT ZEBETA HAS BEEN INCREASE TO 10 MG PO DAILY CHLOTHALIDONE 25 MG PO DAILY LOSARTAN HAS BEEN INCREASE TO 100 MG PO DAILY STOP TAKING ZEBETA 5MG, LOSARTAN 50 MG AND AMLODIPINE 5 MG ACTIVITY TOLERATED CALL DR CONRAD OR GO TO THE EMERGENCY ROOM IF SYMPTOM RETURN OR WORSENING
[2018-10-16 15:34] VITALS: BP 156/80; PULSE 77; RESP 20; TEMP 98.2
--- NOTE | 2018-10-16 20:15 | PN ---
DATE: 10/15/2018 SUBJECTIVE: The patient was seen on 10/15/2018. He was in mild respiratory distress and the congestion. PHYSICAL EXAMINATION: VITAL SIGNS: Blood pressure was 166/79, temperature 97.9, respiratory rate 20 and pulse 80. HEENT: Pupils equal, reactive to light. Normal-appearing mucosa of the conjunctivae, oropharynx and nasal membrane mucosa. NECK: Supple. No JVD, no carotid bruit. No lymph node. No thyromegaly. CHEST AND LUNGS: Bilateral symmetrical expansion. Good air exchange. Bilateral scattered rhonchi. Few basilar rales. CARDIOVASCULAR SYSTEM: PMI not localized. S1, S2. No additional sounds. ABDOMEN: Normoactive bowel sounds. No tenderness, no organomegaly. No masses. EXTREMITIES: No cyanosis, no clubbing, no edema. CENTRAL NERVOUS SYSTEM: Alert, awake, oriented x1 and the patient has no lateralization, but he has dysfunctional gait and disequilibrium. ASSESSMENT: 1. Pulmonary congestion, likely volume overload. 2. Chronic kidney disease. 3. Status post gastrointestinal bleeding, status post esophagogastroduodenoscopy and colonoscopy which did not show any active bleeding. 4. Colitis. 5. Type 2 diabetes mellitus with hyperglycemia. 6. Left kidney cyst versus complicated cyst. PLAN: The patient is given already Lasix. Follow up recommendations of Nephrology, Urology consultation. We will monitor one more day. Keysha Hagen MD
--- NOTE | 2018-10-17 04:37 | DS ---
REASON FOR ADMISSION: This is a 58-year-old [place] male with history of multiple medical problems who was admitted because of possible upper vomiting blood. COURSE OF HOSPITALIZATION: The patient was admitted to medical floor and he was also found to have colitis on the CAT scan. The patient had an EGD and colonoscopy done by Dr. Ellis. The patient did not have any active bleeding. The patient dropped hemoglobin from 12 to 10 and he was transfused 1 unit of packed RBCs. Due to elevation of the BUN and creatinine, the patient had a Nephrology consult. The patient had also a renal ultrasound that showed left renal possible complex cyst versus mass. Urology consultation was called and the patient will follow as an outpatient with Dr. Pittman. The patient was given also Lasix during this admission due to pulmonary congestion. The patient was discharged on Levaquin and metronidazole to continue for five more days and to follow up as an outpatient with his primary care physician, Dr. Hagen with Nephrology, Dr. Rodriguez, Urology and Dr. Pittman. FINAL DIAGNOSES: Chronic kidney disease, anemia of acute blood loss, cerebrovascular accident, hypertension, type 2 diabetes mellitus with hyperglycemia. [facility] MD Hieu
--- NOTE | 2018-10-18 06:18 | CON ---
DATE: 10/13/[address] Gutierrez to Dr. Maggie Newton. I was called for an emergency GI consultation by the admitting medical staff. The patient was seen and fully examined on 10/13/2018 for an emergency GI consultation. The entire chart is reviewed including but not limited to the most recent lab and radiology study results, current and the previous medication lists, current and the previous medical events. The patient was examined in the presence of his who gave most of the information due to the patient's clinical and mental status. HISTORY OF PRESENT ILLNESS: This is a 58-year-old male who was admitted to the hospital though the emergency room with generalized weakness and malaise, abdominal pain. Appears to be somewhat sleepy. No reported actual chest pain or palpitation; however, the patient had recurrent episodes of nausea and vomiting of bloody gastric contents reported also by his with an episode of bloody loose bowel movement. PAST MEDICAL HISTORY: Including but not limited to, 1. Dementia. 2. Diabetes mellitus. 3. COPD with recurrent bronchitis. 4. Hypertension with hyperlipidemia. 5. Seizure disorder. 6. Sleep apnea. 7. Reported past medical history of CVA. 8. Peptic ulcer disease. CURRENT MEDICATIONS: Post-admission medication lists were reviewed. FAMILY HISTORY: Unknown. SOCIAL HISTORY: Positive for cigarette smoking but no alcohol abuse. ALLERGIES TO MEDICATIONS: UNKNOWN. LABORATORY DATA: Initial blood workup post-admission showed leucocytosis of 12 with normal hemoglobin and hematocrit. Blood glucose level of 264, BUN 37, creatinine 4.6, potassium 5.6, CO2 of 19 indicative of metabolic acidosis. Lipase level was 241 and was in the normal limit. PHYSICAL EXAMINATION: GENERAL: A 58-year-old male. VITAL SIGNS: Afebrile with pulse of 80, respiratory rate 20 to 22, blood pressure 166/84. HEENT: Showed dry oral mucous membranes, nonicteric sclerae. LYMPH NODES: No lymphadenitis or lymphadenopathy. LUNGS: Few scattered crepitation. Decreased air entry at bases. HEART: Positive S1 and S2. ABDOMEN: Soft with generalized tenderness. No mass or organomegaly. No rebound tenderness or guarding. RECTAL: Positive tone. Guaiac-positive stool. EXTREMITIES: Without significant clubbing, cyanosis or edema. NEUROLOGIC: No reported new neurological deficits, sensory or motor. IMPRESSION: 1. Gastrointestinal bleeding, upper versus lower. 2. Multiple past medical history as mentioned above. SUGGESTIONS: 1. Agree with your plan. 2. Cancer markers. 3. An emergency upper endoscopy to be followed by colonoscopy after . 4. Proton pump inhibitors. 5. Reglan IV. 6. Further recommendation to follow. Thank you for letting me to participate in your patient's case management. Kellee Gutierrez MD
== END 2018-10-16 16:22 | disposition home or self-care (01) | DRG 378 ==
LOC: C.ER 04:06 → C.9E 09:28 → C.5S 10:48 → OBSVTOIN 10-15 18:22
PROVIDERS: ADMIT Internal Medicine; ATTEND Internal Medicine
PROC: 30233N1 Transfusion of Nonautologous Red Blood Cells into Peripheral Vein, Percutaneous Approach (ICD-10-PCS; 2018-10-13)
PROC: 0DB68ZX Excision of Stomach, Via Natural or Artificial Opening Endoscopic, Diagnostic (ICD-10-PCS; principal; 2018-10-13 11:55)
PROC: 0DBM8ZX Excision of Descending Colon, Via Natural or Artificial Opening Endoscopic, Diagnostic (ICD-10-PCS; 2018-10-14)
DX: K92.2 Gastrointestinal hemorrhage, unspecified (principal); K51.50 Left sided colitis without complications; D62 Acute posthemorrhagic anemia; K21.0 Gastro-esophageal reflux disease with esophagitis; K29.50 Unspecified chronic gastritis without bleeding; N17.9 Acute kidney failure, unspecified; E87.2 Acidosis; K27.9 Peptic ulcer, site unspecified, unspecified as acute or chronic, without hemorrhage or perforation; K44.9 Diaphragmatic hernia without obstruction or gangrene; K64.8 Other hemorrhoids; I12.9 Hypertensive chronic kidney disease with stage 1 through stage 4 chronic kidney disease, or unspecified chronic kidney disease; N18.3 Chronic kidney disease, stage 3 (moderate); E87.5 Hyperkalemia; E11.65 Type 2 diabetes mellitus with hyperglycemia; E11.22 Type 2 diabetes mellitus with diabetic chronic kidney disease; E87.70 Fluid overload, unspecified; I69.354 Hemiplegia and hemiparesis following cerebral infarction affecting left non-dominant side; I67.1 Cerebral aneurysm, nonruptured; J43.9 Emphysema, unspecified; E78.5 Hyperlipidemia, unspecified; E78.00 Pure hypercholesterolemia, unspecified; F01.50 Vascular dementia, unspecified severity, without behavioral disturbance, psychotic disturbance, mood disturbance, and anxiety; G40.909 Epilepsy, unspecified, not intractable, without status epilepticus; G47.30 Sleep apnea, unspecified; F17.210 Nicotine dependence, cigarettes, uncomplicated; Z79.4 Long term (current) use of insulin; Z82.49 Family history of ischemic heart disease and other diseases of the circulatory system; Z83.3 Family history of diabetes mellitus; Z87.11 Personal history of peptic ulcer disease